=== PATIENT | male | born 1945 | race Caucasian/White ===

== ENCOUNTER → 2023-10-28 08:07 | Outpatient (REF) | payer BC, SELFPAY ==
[2023-10-28 10:08] LABS: HDL Cholesterol 71 mg/dl; LDL Cholesterol, Calculated 44 mg/dl; Total Cholesterol 127 mg/dl (50-199); Triglyceride 62 mg/dl (10-149); Very Low Density Lipoprotein 12 mg/dl (0-30)
== END ==
LOC: REG 08:07
PROVIDERS: ATTENDING PHYSICIAN Internal Medicine; FAMILY PHYSICIAN Family Medicine
DX: I25.10 Atherosclerotic heart disease of native coronary artery without angina pectoris (principal)
CPT/HCPCS: 36415; 80061

== ENCOUNTER → 2023-11-04 10:14 | Outpatient (REF) | payer BC, SELFPAY | LOC: DHCBC MAIN 10:14 | PROVIDERS: ATTENDING PHYSICIAN Internal Medicine; FAMILY PHYSICIAN Family Medicine | DX: I25.10 Atherosclerotic heart disease of native coronary artery without angina pectoris (principal); Z98.890 Other specified postprocedural states | CPT/HCPCS: 93306 ==

== ENCOUNTER → 2024-02-13 06:29 | Outpatient (REF) | payer BC, SELFPAY ==
[2024-02-13 08:11] LABS: ALT (SGPT) 20 U/L (0-50); AST (SGOT) 22 U/L (17-59); Albumin 3.5 g/dl (3.5-5.0); Alkaline Phosphatase 76 U/L (38-126); Blood Urea Nitrogen 36 mg/dl (9-20); Calcium 9.3 mg/dl (8.4-10.2); Carbon Dioxide 25 mmol/L (22-30); Chloride 107 mmol/L (98-107); Glucose 95 mg/dl (70-99); HDL Cholesterol 63 mg/dl; LDL Cholesterol, Calculated 63 mg/dl; Potassium 4.4 mmol/L (3.5-5.1); Sodium 138 mmol/L (135-145); Total Bilirubin 0.6 mg/dl (0.2-1.3); Total Cholesterol 135 mg/dl (50-199); Total Protein 6.3 g/dl (6.3-8.2); Triglyceride 45 mg/dl (10-149); Very Low Density Lipoprotein 9 mg/dl (0-30); eGFR 55.88
[2024-02-13 08:27] LABS: Free T3 2.43 pg/ml (2.77-5.27); Free T4 1.63 ng/dl (0.78-2.19)
[2024-02-13 08:29] LABS: Microalbumin, Random Urine 1.3 mg/dl (0.6-1.7); Microalbumin/creatinine Ratio 6.3 mg/g
[2024-02-13 08:40] LABS: TSH 0.35 uIU/ml (0.47-4.68)
[2024-02-13 09:25] LABS: Vitamin D, 25-OH*** 28.6 ng/mL (30-80)
[2024-02-13 09:38] LABS: Glycohemoglobin (HgbA1c) 5.6 % (4.0-5.6)
[2024-02-14 19:45] LABS: Total T3 (Sendout) 62 ng/dL (80-200)
== END ==
LOC: REG 06:29
PROVIDERS: ATTENDING PHYSICIAN Physician Assistant Medical; FAMILY PHYSICIAN Internal Medicine Endocrinology, Diabetes & Metabolism; REFERRING PHYSICIAN Family Medicine
DX: Z95.0 Presence of cardiac pacemaker (principal); R53.83 Other fatigue; R80.9 Proteinuria, unspecified; E03.9 Hypothyroidism, unspecified; E55.9 Vitamin D deficiency, unspecified; R73.03 Prediabetes; E78.5 Hyperlipidemia, unspecified
CPT/HCPCS: 36415; 80053; 80061; 82043; 82306; 82570; 83036; 84439; 84443; 84480; 84481

== ENCOUNTER → 2024-02-14 06:23 | Outpatient (REF) | payer BC, SELFPAY ==
[2024-02-14 08:18] LABS: Iron 26 ug/dl (49-181)
[2024-02-14 08:27] LABS: % Basophils 0.5 % (0-2); % Eosinophils 7.2 % (0-6); % Immature Granulocytes 0.3 % (0-0.5); % Lymphocytes 8.7 % (20.5-51.1); % Monocytes 9.9 % (1.7-9.3); % Neutrophils 73.4 % (42.2-75.2); Absolute Eosinophils 0.4 10^3/uL (0-0.7); Absolute Lymphocytes 0.5 10^3/uL (1.2-3.4); Absolute Monocytes 0.6 10^3/uL (0.1-0.6); Absolute Neutrophils 4.4 10^3/uL (1.4-6.5); Hematocrit 31.2 % (39.0-52.0); Hemoglobin 10.4 g/dL (13.0-18.0); Mean Corp Hgb Conc. 33.3 g/dL (33.0-37.0); Mean Corpuscular Hgb 31.3 pg (27.0-31.0); Mean Platelet Volume 10.1 fL (7.4-10.4); Nucleated Red Blood Cells % 0 % (-); Percent Saturation 10 % (20-50); Platelet Count 246 10^3/uL (130-400); Red Blood Cell Count 3.32 10^6/uL (4.70-6.10); Total Iron Binding Capacity 249 ug/dl (261-462)
== END ==
LOC: REG 06:23
PROVIDERS: ATTENDING PHYSICIAN Specialist; FAMILY PHYSICIAN Family Medicine
DX: D50.9 Iron deficiency anemia, unspecified (principal)
CPT/HCPCS: 36415; 82728; 83540; 83550; 85025

== ENCOUNTER 2024-02-15 22:57 | Inpatient (IN) | payer BC, MEDICARE, SELFPAY ==
[2024-02-15] VITALS (9 sets, daily range): BP systolic 144–175; BP diastolic 60–83
[2024-02-15 15:49] LABS: COVID-19 Antigen Negative (Negative)
[2024-02-15 16:11] LABS: NT-proBNP 4070 pg/ml; Troponin I 0.024 ng/ml
--- NOTE | 2024-02-15 18:34 | ED.GENMED ---
History of Present Illness
General
Chief Complaint: Breathing Problem
Time Seen by Provider: 02/15/24 18:13
History of Present Illness
History of Present Illness:
78-year-old male history of asthma, atrial fibrillation on Eliquis, hypertension, hyperlipidemia presenting with shortness of breath with exertion for the past 5 days. Patient denies chest pain, cough, LE edema, fever, or chills. Pt states he was
seen at urgent care 3 days ago when he had a negative CXR. Pt states he had Mohs surgery 2 weeks ago but did not stop his eliquis for it.
Past History
Past History
ED Past Medical History: Arrthythmia (atrial fibrillation), Asthma, CAD, Cancer (basal cell carcinoma with Mohs surgery), GERD, HTN, Hypercholesterolemia, Psychiatric (generalized anxiety disorder), Other (erectile dysfunction, recurrent sinus
infections) and Other (visually impaired, Blue's esophagus)
ED Past Surgical History: Cardiac (cardiac stent placement 2002, ablation for atrial fibrillation 2009, 07/2022 at [place]: Double bypass, pacemaker, tricuspid valve replacement) and Other (sinus surgery, interlaminar epidural steroid injection 2018)
Social History
Tobacco: Non-smoker (discontinued smoking greater than 10 years prior to 2020)
Alcohol: Occasional
Drug: None
Personal:
Living: with family
Employment: Employed
Family History
Family History: CAD
Phy Exam
Physical Exam
Physical Exam:
General: Alert, no acute distress
Head: NCAT
Eyes: clear conjunctiva
Neck: supple
Cardiac: regular rate and rhythm, no murmur
Lungs: clear to auscultation bilaterally. coarse breath sounds right mid lung. No wheezes, rales, or rhonchi. Speaking full unlabored sentences. No respiratory distress.
Abdomen: soft, nondistended nontender. No rebound or guarding.
MSK: trace pitting edema bilateral lower extremities. No deformity
Skin: warm, dry
Neuro: Alert and oriented x3. no focal deficits
Scores
Heart Failure Risk
Heart Failure Risk Score: Not Applicable
Course
Orders/Labs/Results
Orders:
Orders
02/15/24 14:58
Electrocardiogram (*1) Urgent
Reason for Study: Fatigue / Weakness
EKG- Treatment ONCE
02/15/24 15:15
BNP [NT-proBNP] Urgent
COVID-19 Antigen Urgent
Source: Nasal Swab
Troponin I Urgent
Influenza A+B Rapid Molecular Urgent
ELISEO Source: Nasal Swab
Specimen Description:
02/15/24 18:33
CXR2 [CR Chest - 2 Views ] Urgent
Comment:
Reason For Exam: sob
02/15/24 18:52
CMP [Comprehensive Metabolic Panel] Urgent
Complete Blood Count/With Diff Urgent
Lactic Acid Urgent
02/15/24 21:45
Bumetanide [Bumex] 2 mg IV NOW STA
02/15/24 23:00
Flush (0.9% Sodium Chloride) [Flush (Nss)] See Dose Instructions IV PER PROTOCOL
Abnormal Lab Results
02/15/24
18:52
RBC 3.18 L 10^6/uL
(4.70-6.10)
Hgb 9.9 L g/dL
(13.0-18.0)
Hct 28.8 L %
(39.0-52.0)
MCH 31.1 H pg
(27.0-31.0)
RDW 14.8 H %
(11.5-14.5)
Absolute Lymphs (auto) 0.6 L 10^3/uL
(1.2-3.4)
Absolute Monos (auto) 0.8 H 10^3/uL
(0.1-0.6)
Lymphocytes % 9.0 L %
(20.5-51.1)
Monocytes % 12.6 H %
(1.7-9.3)
BUN 34 H mg/dl
(9-20)
Glucose 113 H mg/dl
(70-99)
Total Protein 6.2 L g/dl
(6.3-8.2)
Albumin 3.4 L g/dl
(3.5-5.0)
02/15/24 18:52
02/15/24 18:52
Vital Signs
Initial and Last Documented VS:
Initial Vital Signs
Temp Pulse Resp BP Pulse Ox
98.9 F 74 18 144/60 90
02/15/24 14:53 02/15/24 14:53 02/15/24 14:53 02/15/24 14:53 02/15/24 14:53
Last Documented Vital Signs
Temp Pulse Resp BP Pulse Ox
100.5 F H 61 16 170/68 98
02/15/24 16:40 02/16/24 07:41 02/16/24 07:41 02/16/24 04:00 02/16/24 07:41
MDM/Problems Addressed
MDM/Problems Addressed:
Patient presents to the Emergency Department with shortness of breath
Number and Complexity of Problems Addressed at the Encounter
� Chronic conditions affecting care:
� Acute Exacerbation and/or Progression of Chronic Illness:
� Differential Diagnosis includes: CHF, viral syndrome, pneumonia, PE.
Amount and/or Complexity of Data to be Reviewed and Analyzed
� I performed an independent evaluation of and my interpretation is:
EKG: EKG shows NSR at 73bpm with WA 166 QTc 456, no STEMI
CT:
Xrays: CXR shows increased pulmonary edema compared to 3 days ago as read by me.
Laboratory Studies: probnp 4070. troponin within normal limits. covid/flu negative. hemoglobin 9.9 (baseline), wBC 6.1 with no left shift.
Other:
� Review of other/old records reveals:
� Clinical information was obtained by an independent historian:
� Prescriptions/Medications Considered but not given:
� Further testing considered but not performed: Low suspicion for PE given patient has been complaint with eliquis, has not missed any doses recently.
Risk of Complications and/or Morbidity or Mortality of Patient Management
� Social Determinants of health affecting care:
� Discussion with other providers (PCP, Hospitalists, Consultants, etc):
� Escalation of care including admission/observation vs risk of discharge considered: 78yoM hx afib on eliquis, HTN, HLD presenting with sob for the past 5 days. Patient becomes hypoxic to 87% on RA with ambulation, placed on 2L NC with improvement
to 96%. CXR shows increased pulmonary edema compared to CXR 3 days ago. Probnp 4070. Troponin negative. Concern for CHF. Ordered bumex 2mg IV. Discussed with hospitalist for admission.
*Critical Care Note
Total Time (30-74mins, 75-104mins- exclusive of procedures): Not Applicable
ED Attending Note
-
Portions of this chart may have been created with voice recognition software.� Occasional wrong word or��sound alike� substitutions may have occurred due to the inherent limitations of voice recognition software.
Discharge Plan
Departure
Patient Disposition: Admit
Date of Disposition: 02/15/24
Time of Disposition: 21:45
Presentation/result/management discussed w/ accepting MD/DO: Hospitalist
Discharge Problem:
CHF (congestive heart failure), Acute hypoxic respiratory failure
Interventions
Interventions:
*Risk Screen - Suicide Last Done: 02/15/24 14:53
*General Assessment Last Done: 02/15/24 14:53
*Neglect/Abuse Screening Last Done: 02/15/24 14:53
ED- Fall Risk Assessment Last Done: 02/15/24 18:28
*ED COVID-19 Vaccine History Last Done: 02/15/24 18:28
ED- Cardiac Assessment Last Done: 02/15/24 18:28
ED- Pulmonary Assessment Last Done: 02/15/24 18:28
[2024-02-15 19:04] LABS: % Basophils 0.5 % (0-2); % Eosinophils 5.1 % (0-6); % Immature Granulocytes 0.5 % (0-0.5); % Monocytes 12.6 % (1.7-9.3); % Neutrophils 72.3 % (42.2-75.2); Absolute Eosinophils 0.3 10^3/uL (0-0.7); Absolute Lymphocytes 0.6 10^3/uL (1.2-3.4); Absolute Monocytes 0.8 10^3/uL (0.1-0.6); Absolute Neutrophils 4.4 10^3/uL (1.4-6.5); Hematocrit 28.8 % (39.0-52.0); Hemoglobin 9.9 g/dL (13.0-18.0); Mean Corp Hgb Conc. 34.4 g/dL (33.0-37.0); Mean Corpuscular Hgb 31.1 pg (27.0-31.0); Mean Corpuscular Volume 90.6 fL (80.0-94.0); Mean Platelet Volume 9.5 fL (7.4-10.4); Nucleated Red Blood Cells % 0 % (-); Platelet Count 232 10^3/uL (130-400); Red Blood Cell Count 3.18 10^6/uL (4.70-6.10); Red Cell Dist. Width 14.8 % (11.5-14.5); White Blood Cell Count 6.1 10^3/uL (4.8-10.8)
[2024-02-15 19:26] LABS: ALT (SGPT) 17 U/L (0-50); AST (SGOT) 19 U/L (17-59); Albumin 3.4 g/dl (3.5-5.0); Alkaline Phosphatase 74 U/L (38-126); Blood Urea Nitrogen 34 mg/dl (9-20); Calcium 8.7 mg/dl (8.4-10.2); Carbon Dioxide 23 mmol/L (22-30); Chloride 107 mmol/L (98-107); Glucose 113 mg/dl (70-99); Lactic Acid 0.7 mmol/L (0.7-2.0); Potassium 3.9 mmol/L (3.5-5.1); Sodium 136 mmol/L (135-145); Total Bilirubin 0.7 mg/dl (0.2-1.3); Total Protein 6.2 g/dl (6.3-8.2); eGFR > 60.00
--- NOTE | 2024-02-15 21:53 | HPS.HSE ---
Addendum entered and electronically signed by Korey Gutierrez DO 02/15/24 23:16:
Patient seen and examined independently. Agree with findings and plan as set forth by GLADYS Sewell.
Patient is a 78y M with PMH significant for hypertension. CHF, A-Fib and ASCVD who presents to ED complaining of SOB x 5 days. Patient complains of dyspnea that is more evident with exertion and has been progressive over the past 5 days. He
denies any subjective fevers / chills, cough, chest pain or palpitations. Patient states that his weight has not changed at home. He has appreciated no abdominal distention or LE edema. He denies nay other current complaints or concerns.
Ass:
Acute on Chronic HFpEF
Acute Hypoxemic Respiratory Insufficiency secondary to the above
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
Paroxysmal A-Fib
ASCVD
Heart Block s/p PPM
Benign Hypertension
Dyslipidemia
CKD III
GERD / Blue's
BPH
Anemia of Chronic Disease
Fever
Plan:
Admit for further evaluation and treatment.
Symptoms, CXR, etc seem c/w volume overload.
Change Bumex to IV and follow I/Os, daily weights, oxygenation, etc.
Cardiology evaluation for additional recommendations.
Continue usual outpatient medications otherwise.
Monitor for changes in temperature curve. Check cultures if fever increases or new focal symptoms develop.
Original Note:
Family Physician
-
Family Physician: Jose J Delcid
Chief Complaint
-
sob
History of Present Illness
78-year-old male history of asthma, atrial fibrillation on Eliquis, hypertension, hyperlipidemia, asthma, CAD, GERD, HTN, HLD, anxiety, Blue's esophagus presenting with shortness of breath with exertion for the past 5 days. Patient denies chest
pain, cough, LE edema, fever, or chills. denied runny nose, congestion. denied ELENA, dizzy or syncopal episode. denied abdominal pain,n,v,d. denied dysuria or hematuria.
note elevated BNP. patient hypoxic requiring 2l. received Bumex in ER. admitting for further management.
Medical History
Past Medical History
Past Medical History: Reports Other
Additional Past Medical History:
Coronary Artery Disease
Chronic HFpEF
Paroxysmal Atrial Fibrillation
Complete Heart Block
Essential Hypertension
Hyperlipidemia
CKD Stage III
Asthma/COPD
Severe Pulmonary Hypertension
Blue's Esophagus
BPH
Past Surgical History: Reports Other
Additional Past Surgical History:
Coronary Artery Bypass Graft
Pacemaker
Tricuspid Valve Repair
Mitral Valve Repair
Social History
Tobacco: Non-smoker
Alcohol: None
Family History
Family History: Not pertinent
Allergies / Home Medications
Allergies reflects when Allergies were last updated in [employer].
Home Medications with original date entered in [employer]
Allergy/Medication List:
Allergies
Allergy/AdvReac Type Severity Reaction Status Date / Time
celery Allergy throat raw Verified 02/15/24 14:53
and itchy
house dust Allergy ASTHMA Verified 02/15/24 14:53
mold Allergy asthma Verified 02/15/24 14:53
onion Allergy throat raw Verified 02/15/24 14:53
and itch
mildew Allergy asthma Uncoded 02/15/24 14:53
Home Medications
apixaban 5 mg tablet (Eliquis) 5 mg PO BID Blood clot prevention/tx 06/30/21
lorazepam 1 mg tablet 0.5 mg PO TIDPRN PRN anxiety 06/30/21
zolpidem 10 mg tablet 5 mg PO BID@0200,2100 Sleep 06/30/21
finasteride 5 mg tablet 5 mg PO DAILY Urinary Issue 07/01/22
mometasone 50 mcg/actuation nasal spray 1 spray intranasal BID Lung/Breathing Issues 07/01/22
fluticasone fur. 100 mcg-umeclid 62.5 mcg-vilant 25 mcg inhalat.powder (Trelegy Ellipta) 1 inh inhalation R DAILY Lung/Breathing Issues 07/06/22
potassium chloride 20 mEq tablet,extended release 20 meq PO BID #180 tabs 07/06/22
albuterol sulfate 90 mcg/actuation aerosol inhaler 2 puff inhalation R Q6HPRN PRN sob/wheezing 02/18/23
atorvastatin 80 mg tablet 80 mg PO QPM High Cholesterol 02/18/23
bumetanide 2 mg tablet 2 mg PO NOON Fluid Retention/Swelling 02/18/23
carvedilol 25 mg tablet 25 mg PO BID Blood Pressure 02/18/23
doxazosin 8 mg tablet 8 mg PO BID Blood Pressure 02/18/23
hydralazine 100 mg tablet 100 mg PO TID Blood Pressure 02/18/23
lutein 20 mg capsule 20 mg PO DAILY Supplement 02/19/23
lidocaine 4 % topical patch 2 patch topical HS Pain 03/09/23
sennosides 8.6 mg tablet (Senna Laxative) 17.2 mg PO DAILY Constipation 03/09/23
B-Hagrby-E-Cysteine 600 mg PO DAILY Supplement 05/27/23
acetaminophen 500 mg tablet 1,000 mg PO BID@1800,2200 Pain 05/27/23
Review of Systems
-
Constitutional: Reports No Symptoms
EENT: Reports No Symptoms
Respiratory: Reports No Symptoms and Trouble Breathing
Cardiac: Reports No Symptoms
Abdomen/GI: Reports No Symptoms
: Reports No Symptoms
Musculoskeletal: Reports No Symptoms
Skin: Reports No Symptoms
Neurological: Reports No Symptoms
Endocrine: Reports No Symptoms
Hematologic/Lymphatic: Reports No Symptoms
Psych: Reports No Symptoms
Physical Exam
Vital Signs
Vital Signs
Temp Pulse Resp BP Pulse Ox
100.5 F H 60 17 153/69 96
02/15/24 16:40 02/15/24 20:15 02/15/24 20:15 02/15/24 20:00 02/15/24 20:15
Physical Exam
General: Well Developed, Well Nourished and No Apparent Distress
HEENT: NormoCephalic, Moist mucous membranes and Atraumatic
Respiratory: Rales
Cardiac: S1/S2 and Regular Rhythm; No Murmur or Rub
GI: Soft, Non Tender, Non Distended and Normal Bowel Sounds; No Organomegaly
Rectal: Deferred by Provider
Musculoskeletal: No Clubbing, No Cyanosis and No Edema
Skin: No Rash
Neuro: AO x 3 and Nonfocal/grossly intact
Psych: Calm
Laboratory Results
-
02/15/24 18:52
02/15/24 18:52
Laboratory Results
Lactic Acid 0.7 mmol/L (0.7-2.0) 02/15/24 18:52
Total Bilirubin 0.7 mg/dl (0.2-1.3) 02/15/24 18:52
AST 19 U/L (17-59) 02/15/24 18:52
ALT 17 U/L (0-50) 02/15/24 18:52
Alkaline Phosphatase 74 U/L (38-126) 02/15/24 18:52
Troponin I 0.024 ng/ml 02/15/24 15:15
Data Reviewed
-
Lab Data: Labs Reviewed by me
Impression/Plan
-
#worsening sob/acute hypoxic respiratory failure likely CHF exacerbation
-BNP 4070
-chest x ray with pulmonary edema
-iv Bumex continued
-strict I &O
-daily weight
-fluid restriction
-recent ECHO with . LV ejection fraction is 60-65% by Solares's method of discs. Diastolic function indeterminate.
-continue supplemental oxygen to keep sat>92
-wean as tolerated
-cardiology consulted
#anemia of chronic disease
-hgb stable at 9.9
-no active bleeding
-ctm
#fever unclear cause
-100.5
-flu, covid negative
-obtain culture if continues to spike fever
# Paroxysmal Atrial Fibrillation status post history of ablation
-Continue Amiodarone for rate/rhythm control
-Continue Eliquis for anticoagulation
-EKg with NSR with atrial paced beats
#Essential Hypertension
-Continue Doxazosin, Coreg and Hydralazine with hold parameter
#Hyperlipidemia
-Continue atorvastatin
#CKD Stage IIIB
-Creatinine stable and at baseline
#GERD/Blue's Esophagus
-Continue Protonix
#BPH
-Continue doxazosin and finasteride
#Complete Heart Block s/p Pacemaker
#Coronary Artery Disease s/p CABG
#Tricuspid valve regurgitation
#History of heart valve surgery
#History of pacemaker
#hxt of Asthma
-nebs prn for sob/wheezing
#Basal cell carcinoma with Mohs surgery
#Anxiety
-lorazepam continued
#Bilateral blindness
#Chronic low back pain
-lidocaine patch
#DVT Prophylaxis: Eliquis
#Code Status: Full Code
[2024-02-15] MEDS: BUMEX 2 MG IV (23:04)
[2024-02-16] VITALS (22 sets, daily range): BP systolic 114–174; BP diastolic 52–75; PULSE 62; O2SAT 95
[2024-02-16] MEDS: AMBIEN 5 MG PO ×2 (00:44→21:44)
[2024-02-16 02:46] LABS: Troponin I 0.017 ng/ml
[2024-02-16 06:22] LABS: Hematocrit 27.8 % (39.0-52.0); Hemoglobin 9.6 g/dL (13.0-18.0); Mean Corp Hgb Conc. 34.5 g/dL (33.0-37.0); Mean Corpuscular Hgb 31.4 pg (27.0-31.0); Mean Corpuscular Volume 90.8 fL (80.0-94.0); Mean Platelet Volume 9.9 fL (7.4-10.4); Platelet Count 217 10^3/uL (130-400); Red Blood Cell Count 3.06 10^6/uL (4.70-6.10); Red Cell Dist. Width 14.6 % (11.5-14.5); White Blood Cell Count 6.3 10^3/uL (4.8-10.8)
[2024-02-16 06:35] LABS: ALT (SGPT) 16 U/L (0-50); AST (SGOT) 18 U/L (17-59); Albumin 3.3 g/dl (3.5-5.0); Alkaline Phosphatase 72 U/L (38-126); Blood Urea Nitrogen 30 mg/dl (9-20); Calcium 8.8 mg/dl (8.4-10.2); Carbon Dioxide 25 mmol/L (22-30); Chloride 105 mmol/L (98-107); Direct Bilirubin 0.2 mg/dl (0.0-0.4); Glucose 97 mg/dl (70-99); HDL Cholesterol 49 mg/dl; LDL Cholesterol, Calculated 67 mg/dl; Magnesium 1.9 mg/dl (1.6-2.3); Potassium 3.4 mmol/L (3.5-5.1); Sodium 137 mmol/L (135-145); Total Bilirubin 0.8 mg/dl (0.2-1.3); Total Cholesterol 128 mg/dl (50-199); Triglyceride 64 mg/dl (10-149); Very Low Density Lipoprotein 12 mg/dl (0-30); eGFR > 60.00
[2024-02-16 07:34] LABS: Free T4 1.64 ng/dl (0.78-2.19)
[2024-02-16] MEDS: SYMBICORT 80/4.5 MCG INHALER 2 PUFF INH ×2 (07:34→20:33)
[2024-02-16] MEDS: SPIRIVA RESPIMAT 2.5 MCG 2 PUFF INH (07:34)
[2024-02-16] MEDS: ProAIR HFA INHALER 2 PUFF INH ×2 (07:40→20:32)
--- NOTE | 2024-02-16 08:02 | CON.CAR ---
Addendum entered and electronically signed by Devante Guerrero MD 02/16/24 09:55:
Patient seen and examined in collaboration with [employer]; agree with below.
-78-year-old male with coronary artery disease who underwent CABG, mitral valve repair, tricuspid valve repair, TERE ligation, and permanent pacemaker implantation (07/2022 at [facility]), PAF (on Eliquis), HFpEF, and CKD presenting with dyspnea over the
past few days; hypoxic on presentation.
-Patient is mildly febrile with a temperature of 100.5; will check blood cultures.
-Repeat echocardiogram today.
-Bumex 2 mg IV twice daily for now.
-engine monitor; will follow.
Original Note:
Consultation
Consultation Request
Date/Time Consultation Requested: 02/16/24 0013
Date/Time Consultation Performed: 02/16/24 0800
Requesting Provider: Dr. Gutierrez
Performing Provider: Cheyenne GRAHAM for Dr. Guerrero
Reason for Consultation: CHF
Medical History
-
Chief Complaint: SOB
History of Present Illness:
78 y/o male with CAD s/p LAD stent 2002, now s/p CABG, MV repair, TV repair, TERE ligation 2022, post-op CHB s/p PPM, PAF s/p ablation and atrial flutter on Eliquis, HFpEF, HTN, dyslipidemia, CKD3A, legally blind, asthma, and GERD who is here for
worsened MILLER over the past 5 days. He has had occasional chills, but no fever at home. He has had fatigue as well. He denies any cough, weight gain, or chest pain. He was hypoxic to 87% and is now on 2L NC. BNP 4070, temp 100.5. EKG stable. CXR
suggestive excess volume. Covid and flu negative. He is admitted for suspected CHF exacerbation and is received IV bumex. He is in no distress at the time of my assessment. Dr. Alvarez is his welding tester. Follows with [facility].
Past Medical History
Past Medical History: Arrhythmias, CAD, CHF, GERD, HTN, Hypercholesterolemia, Valvular Disease and Other (as above)
Social History
Personal:
Living: With Family
Family History
Family History: Reviewed & Not Pertinent
Allergies / Home Medications
Allergy/AdvReac Type Severity Reaction Status Date / Time
celery Allergy throat raw Verified 02/15/24 14:53
and itchy
house dust Allergy ASTHMA Verified 02/15/24 14:53
mold Allergy asthma Verified 02/15/24 14:53
onion Allergy throat raw Verified 02/15/24 14:53
and itch
mildew Allergy asthma Uncoded 02/15/24 14:53
�Medication �Instructions �Recorded �Confirmed �Type
apixaban 5 mg tablet (Eliquis) 5 mg PO BID Blood clot 06/30/21 02/15/24 History
prevention/tx
lorazepam 1 mg tablet 0.5 mg PO TIDPRN PRN anxiety 06/30/21 02/15/24 History
zolpidem 10 mg tablet 5 mg PO BID@0200,2100 Sleep 06/30/21 02/15/24 History
finasteride 5 mg tablet 5 mg PO DAILY Urinary Issue 07/01/22 02/15/24 History
mometasone 50 mcg/actuation nasal 1 spray intranasal BID 07/01/22 02/15/24 History
spray Lung/Breathing Issues
fluticasone fur. 100 mcg-umeclid 1 inh inhalation R DAILY 07/06/22 02/15/24 History
62.5 mcg-vilant 25 mcg Lung/Breathing Issues
inhalat.powder (Trelegy Ellipta)
potassium chloride 20 mEq 20 meq PO BID #180 tabs 07/06/22 02/15/24 Rx
tablet,extended release
albuterol sulfate 90 mcg/actuation 2 puff inhalation BID 02/18/23 02/16/24 History
aerosol inhaler
atorvastatin 80 mg tablet 80 mg PO QPM High Cholesterol 02/18/23 02/15/24 History
bumetanide 2 mg tablet 2 mg PO NOON Fluid 02/18/23 02/15/24 History
Retention/Swelling
carvedilol 25 mg tablet 25 mg PO BID Blood Pressure 02/18/23 02/15/24 History
doxazosin 8 mg tablet 8 mg PO BID Blood Pressure 02/18/23 02/15/24 History
hydralazine 100 mg tablet 100 mg PO TID Blood Pressure 02/18/23 02/15/24 History
lutein 20 mg capsule 20 mg PO DAILY Supplement 02/19/23 02/15/24 History
lidocaine 4 % topical patch 2 patch topical HS Pain 03/09/23 02/15/24 History
sennosides 8.6 mg tablet (Senna 17.2 mg PO DAILY Constipation 03/09/23 02/15/24 History
Laxative)
H-Zbloll-C-Cysteine 600 mg PO DAILY Supplement 05/27/23 02/15/24 History
acetaminophen 500 mg tablet 1,000 mg PO BID@1800,2200 Pain 05/27/23 02/15/24 History
Review of Systems
-
History Source: Patient
All other systems: Negative unless noted
Constitutional: Fatigue
Respiratory: Trouble Breathing
Physical Exam
Vital Signs
Temp Pulse Resp BP Pulse Ox
100.5 F H 61 16 170/68 98
02/15/24 16:40 02/16/24 07:41 02/16/24 07:41 02/16/24 04:00 02/16/24 07:41
Lab Results
02/16/24 06:06
02/16/24 06:06
Troponin I 0.020 ng/ml 02/16/24 06:06
Aja-P-Cjigjklripk Pept 4070 pg/ml 02/15/24 15:15
Physical Exam
General: Well Developed, Well Nourished and No Apparent Distress
HEENT: Normocephalic and Anicteric
Respiratory: Non Labored Respirations and Other (diminished to bases, on O2 by NC)
Cardiac: Regular Rhythm
Musculoskeletal: Edema (mild BLE edema)
Neuro: AO x 3
Psych: Calm
Impression / Plan
-
Hpofw-kh-gjdrmji HFpEF:
-most recent echo as below; will update
-IV bumex- adjust to BID and monitor response- requires intensive monitoring
-hypokalemia is noted and I have ordered replacement
PAF, hx Typical aflutter:
-stable in SR
-continue coreg and follow telemetry
-continue Eliquis for OAC
CAD with hx stenting and CABG:
-stable without CP
-continue ASA, statin, BB
Hx TV and MV repair:
-stable by recent echo
CHF s/p pacemaker:
-follow tele
-follows with [facility]
HTN:
-on multidrug regimen- continue
-monitor with diuresis
Low-grade fever:
-will check blood cultures
Data Reviewed
-
EKG: Tracing Personally Visualized and interpreted (NSR with a paced beats, LVH - similar to previous OP EKG)
Radiology: Report Reviewed by me (Small bilateral pleural effusions. Both lungs appear hypoinflated compared to most recent radiograph. Cardiomegaly. Suggestion of mild increased interstitial markings.)
Medical Tests (Nuc Med, Echo etc): Report Reviewed by me (Echo 11/04/23: EF 60-65%. Mild concentric LVH. Pacer wire seen in right ventricle. Severe biatrial enlargement. S/p Mitral valve repair (mean 4 mmHg and mild MR). Mild AR. S/p Tricuspid valve
repair (mean 3 mmHg and moderate TR). Estimated PASP 59 mmHg and estimated RA 15 mmHg.)
Labs: Labs Reviewed by me
--- NOTE | 2024-02-16 08:54 | W.PN.HOSP.TC ---
Today's Communication/Plan
-
see bold
Assessment / Plan
Assessment / Plan
HPI: 78-year-old male history of asthma, atrial fibrillation on Eliquis, hypertension, hyperlipidemia, asthma, CAD, GERD, HTN, HLD, anxiety, Blue's esophagus presenting with shortness of breath with exertion for the past 5 days.
#Acute hypoxic respiratory insufficiency
Acute on chronic heart failure with a preserved ejection fraction
Appreciate cardiology input, continue IV Bumex, update echo
Trend creatinine, trend daily weights, wean oxygen as tolerated
#Fever
No leukocytosis noted
Tmax yesterday was 100.5
Chest x-ray shows small bilateral pleural effusions, COVID/flu negative
Check blood cultures, urine analysis/culture
#Hypokalemia
Replete
#Paroxysmal atrial fibrillation/flutter
Currently normal sinus rhythm, continue Eliquis and Coreg
#Coronary artery disease status post stents and CABG
Continue aspirin, statin, beta-renetta
#Chronic back pain
#Degenerative disc disease
He is ordered Tylenol according to his home regimen
Add tramadol 50 mg 3 times daily as needed, lidocaine patches
#Anemia of chronic disease
� Trend hemoglobin
#Essential Hypertension
-Continue Doxazosin, Coreg and Hydralazine with hold parameter
#Hyperlipidemia
-Continue atorvastatin
#CKD Stage IIIB
-Creatinine stable and at baseline
#GERD/Blue's Esophagus
-Continue Protonix
#BPH
-Continue doxazosin and finasteride
DVT prophylaxis�Eliquis
Full code
Updated at bedside 02/15
Total time spent to see the patient on the floor, examine the patient, review data and lab results, discuss treatment plan with patient, nursing staff around 51 minutes.
Physical Exam
General: Appears to not feel well, no acute distress
HEENT: Normocephalic, Atraumatic, EOMI, MMM
Respiratory: Diminished breath sounds at the bases
Cardiac: Normal S1/S2, Regular Rate and Rhythm
GI: Soft, Nontender, Nondistended, Normal Bowel Sounds
Extremities: No Clubbing, Cyanosis, or Edema
Neuro: Nonfocal/Grossly Intact
Psych: Calm, Cooperative
Anticipated Discharge: 24 - 48 hours
Subjective/Interval History
-
Date of Service: February 16, 2024
Patient reports his shortness of breath has improved. Denies chest pain, denies nausea, denies vomiting. He is upset that he did not get his usual pain medications on his regular schedule.
Objective Data
-
Labs:
Laboratory Results
02/16/24
06:06
WBC 6.3
Hgb 9.6 L
Hct 27.8 L
Plt Count 217
Sodium 137
Potassium 3.4 L
Chloride 105
Carbon Dioxide 25
BUN 30 H
Creatinine 1.2
Glucose 97
Calcium 8.8
Total Bilirubin 0.8
AST 18
ALT 16
Alkaline Phosphatase 72
Vital Signs:
Vital Signs
Temp Pulse Resp BP Pulse Ox
100.5 F H 61 16 170/68 98
02/15/24 16:40 02/16/24 07:41 02/16/24 07:41 02/16/24 04:00 02/16/24 07:41
I&O
02/15/24 02/16/24 02/17/24
06:59 06:59 06:59
Output Total 1655 / 1655
Balance -1655 / -1655
[2024-02-16] MEDS: APRESOLINE 100 MG PO ×3 (10:48→21:43)
[2024-02-16] MEDS: BUMEX 2 MG IV ×2 (10:48→16:28)
[2024-02-16] MEDS: SENOKOT 17.2 MG PO (10:49)
[2024-02-16] MEDS: PROSCAR 5 MG PO (10:49)
[2024-02-16] MEDS: CARDURA 8 MG PO ×2 (10:50→21:43)
[2024-02-16] MEDS: COREG 25 MG PO ×2 (10:50→21:43)
[2024-02-16] MEDS: ELIQUIS 5 MG PO ×2 (10:50→21:44)
[2024-02-16] MEDS: ULTRAM 50 MG PO ×2 (11:16→18:39)
[2024-02-16] MEDS: KCL 20 MEQ PO ×4 (11:16→21:44)
[2024-02-16 12:23] LABS: Troponin I 0.019 ng/ml
[2024-02-16] MEDS: LIPITOR 80 MG PO (16:28)
[2024-02-16] MEDS: TYLENOL 1000 MG PO ×2 (16:28→21:44)
[2024-02-16] MEDS: LIDOCAINE 4% PATCH 2 PATCH TOPICAL (21:44)
[2024-02-16] MEDS: COREG PO (21:56)
[2024-02-17] VITALS (7 sets, daily range): BP systolic 133–166; BP diastolic 63–75; PULSE 69; O2SAT 91; BMI 24.5
[2024-02-17] MEDS: TYLENOL PO (03:05)
[2024-02-17] MEDS: ATIVAN 0.5 MG PO (03:44)
[2024-02-17] MEDS: COREG PO (04:03)
[2024-02-17 07:07] LABS: Hematocrit 28.8 % (39.0-52.0); Mean Corp Hgb Conc. 34.7 g/dL (33.0-37.0); Mean Corpuscular Hgb 31.7 pg (27.0-31.0); Mean Corpuscular Volume 91.4 fL (80.0-94.0); Mean Platelet Volume 9.8 fL (7.4-10.4); Platelet Count 226 10^3/uL (130-400); Red Blood Cell Count 3.15 10^6/uL (4.70-6.10); Red Cell Dist. Width 14.5 % (11.5-14.5); White Blood Cell Count 6.7 10^3/uL (4.8-10.8)
[2024-02-17] MEDS: SPIRIVA RESPIMAT 2.5 MCG 2 PUFF INH (07:26)
[2024-02-17] MEDS: SYMBICORT 80/4.5 MCG INHALER 2 PUFF INH ×2 (07:27→21:10)
[2024-02-17 07:34] LABS: Blood Urea Nitrogen 32 mg/dl (9-20); Carbon Dioxide 26 mmol/L (22-30); Chloride 106 mmol/L (98-107); Estimated Creatinine Clearance 53 ml/min; Glucose 92 mg/dl (70-99); Phosphorus 3.7 mg/dl (2.5-4.5); Sodium 139 mmol/L (135-145); eGFR > 60.00
[2024-02-17] MEDS: SENOKOT 17.2 MG PO (07:49)
[2024-02-17] MEDS: KCL 20 MEQ PO ×2 (07:49→20:59)
[2024-02-17] MEDS: PROSCAR 5 MG PO (07:49)
[2024-02-17] MEDS: ELIQUIS 5 MG PO ×2 (07:49→20:59)
[2024-02-17] MEDS: APRESOLINE 100 MG PO ×3 (07:51→20:59)
[2024-02-17] MEDS: CARDURA 8 MG PO ×2 (07:51→21:00)
[2024-02-17] MEDS: COREG 25 MG PO ×2 (07:51→21:00)
[2024-02-17] MEDS: BUMEX 2 MG IV ×2 (07:52→16:21)
--- NOTE | 2024-02-17 08:41 | W.PN.HOSP.TC ---
Today's Communication/Plan
-
See bold
Assessment / Plan
Assessment / Plan
HPI: 78-year-old male history of asthma, atrial fibrillation on Eliquis, hypertension, hyperlipidemia, asthma, CAD, GERD, HTN, HLD, anxiety, Blue's esophagus presenting with shortness of breath with exertion for the past 5 days.
#Acute hypoxic respiratory insufficiency
Acute on chronic heart failure with a preserved ejection fraction
Appreciate cardiology input, continue Bumex 2 mg IV twice daily
Echo 02/15 stable with EF 55-60% and stable MV and TV repairs
Trend creatinine, trend daily weights
Hypoxia resolved, now on room air
PT - no needs
#Fever
No leukocytosis noted
Tmax yesterday was 100.5
Chest x-ray shows small bilateral pleural effusions, COVID/flu negative
Urine analysis/blood cultures negative to date, fever resolved
#Hypokalemia
Repleted and resolved
#Paroxysmal atrial fibrillation/flutter
Currently normal sinus rhythm, continue Eliquis and Coreg
#Coronary artery disease status post stents and CABG
Continue aspirin, statin, beta-renetta
#Chronic back pain
#Degenerative disc disease
He is ordered Tylenol according to his home regimen
Added tramadol 50 mg 3 times daily as needed, lidocaine patches
#Anemia of chronic disease
� Trend hemoglobin
#Essential Hypertension
-Continue Doxazosin, Coreg and Hydralazine with hold parameter
#Hyperlipidemia
-Continue atorvastatin
#CKD Stage IIIB
-Creatinine stable and at baseline
#GERD/Blue's Esophagus
-Continue Protonix
#BPH
-Continue doxazosin and finasteride
DVT prophylaxis�Eliquis
Full code
Updated at bedside 02/15
Total time spent to see the patient on the floor, examine the patient, review data and lab results, discuss treatment plan with patient, nursing staff around 41 minutes.
Physical Exam
General: Appears to not feel well, no acute distress
HEENT: Normocephalic, Atraumatic, EOMI, MMM
Respiratory: Diminished breath sounds at the bases
Cardiac: Normal S1/S2, Regular Rate and Rhythm
GI: Soft, Nontender, Nondistended, Normal Bowel Sounds
Extremities: No Clubbing, Cyanosis, or Edema
Neuro: Nonfocal/Grossly Intact
Psych: Calm, Cooperative
Anticipated Discharge: Within 24 hours
Subjective/Interval History
-
Date of Service: February 17, 2024
Patient reports breathing improved. His pain is better controlled now that he is back on his home regimen. No fever, no vomiting.
Objective Data
-
Labs:
Laboratory Results
02/17/24
06:36
WBC 6.7
Hgb 10.0 L
Hct 28.8 L
Plt Count 226
Sodium 139
Potassium 4.0
Chloride 106
Carbon Dioxide 26
BUN 32 H
Creatinine 1.2
Glucose 92
Calcium 9.0
Vital Signs:
Vital Signs
Temp Pulse Resp BP Pulse Ox
98.2 F 69 16 166/67 96
02/17/24 03:00 02/17/24 07:51 02/17/24 07:29 02/17/24 07:51 02/17/24 07:29
I&O
02/16/24 02/17/24 02/18/24
06:59 06:59 06:59
Intake Total 240 / 240
Output Total 2555 / 2555
Balance -2315 / -2315
[2024-02-17 10:15] LABS: Urine Albumin Negative (Neg - Trace); Urine Bilirubin Negative (Negative); Urine Character Clear (Clear); Urine Color Yellow; Urine Glucose Negative (Negative); Urine Ketone Negative (Negative); Urine Leukocyte Negative (Negative); Urine Nitrite Negative (Negative); Urine Occult Blood Negative (Negative); Urine Urobilinogen Negative (Neg - 1+); Urine pH 6.5 (5.0-9.0)
--- NOTE | 2024-02-17 11:38 | W.PN.CD ---
Today's Communication / Plan
-
continue IV bumex 2mg IV bid
Impression / Plan
-
Objwe-qt-kzifbgs HFpEF:
-echo 02/15 stable with EF 55-60% and stable MV and TV repairs
-continue IV bumex 2mg IV bid, with close monitoring of labs and tele
Low-grade fever:
-infectious eval per hospitalist
PAF, hx Typical aflutter:
-stable in SR
-continue coreg and follow telemetry: atrial paced
-continue Eliquis for OAC
CAD with hx stenting and CABG:
-stable without CP
-continue ASA, statin, BB
Hx TV and MV repair:
-stable by recent echo
HTN:
-on multidrug regimen- continue
-monitor with diuresis
Physical Exam
Vital Signs/Labs
Vital Signs
Temp Pulse Resp BP Pulse Ox
98.1 F 69 16 166/67 96
02/17/24 07:00 02/17/24 07:51 02/17/24 07:29 02/17/24 07:51 02/17/24 07:29
02/16/24 02/17/24 02/18/24
06:59 06:59 06:59
Actual Weight 80 kg 79.52 kg
02/17/24 06:36
02/17/24 06:36
Magnesium 2.0 mg/dl (1.6-2.3) 02/17/24 06:36
Triglycerides 64 mg/dl (10-149) 02/16/24 06:06
LDL Cholesterol, Calc 67 mg/dl 02/16/24 06:06
VLDL Cholesterol, Calc 12 mg/dl (0-30) 02/16/24 06:06
HDL Cholesterol 49 mg/dl 02/16/24 06:06
Free T4 1.64 ng/dl (0.78-2.19) 02/16/24 06:06
02/15/24
15:15
Bhc-B-Lvjsgukrtsk Pept 4070
LAB Results
02/15/24 02/16/24 02/16/24
15:15 02:10 06:06
Troponin I 0.024 0.017 0.020
02/16/24
11:28
Troponin I 0.019
Physical Exam
Constitutional: No acute distress and Comfortable
EENT: Moist mucous membranes
Cardiovascular: Rhythm & rate is regular, Pedal edema present, JVD present and Systolic murmur present
Respiratory: Respiratory effort normal and Lungs clear to auscul.
GI: Soft and Distention absent
Neuro/Psych: AO x 3
Data Reviewed
-
Date of Service: February 17, 2024
Echo: Report Reviewed by me
Labs: Labs Reviewed by me
--- NOTE | 2024-02-17 14:37 | CM ---
collision center manager reviewed patient's chart and met with patient and patient lives with his spouse in a 2 story home, 3 steps to enter, patient is independent with adl's and ambulation, no dme.
PCP: Dr. Delcid
Pharmacy; [facility]
Plan; Home with spouse when stable.
[2024-02-17] MEDS: ULTRAM PO (15:03)
[2024-02-17] MEDS: ULTRAM 50 MG PO ×2 (15:05→21:16)
[2024-02-17] MEDS: LIPITOR 80 MG PO (17:27)
[2024-02-17] MEDS: TYLENOL 1000 MG PO ×2 (17:27→20:59)
[2024-02-17] MEDS: LIDOCAINE 4% PATCH 2 PATCH TOPICAL (20:59)
[2024-02-17] MEDS: AMBIEN 5 MG PO (21:00)
[2024-02-18] MEDS: ATIVAN 0.5 MG PO (02:09)
[2024-02-18] MEDS: TYLENOL 500 MG PO (02:09)
[2024-02-18 03:10] VITALS: BP 129/52
[2024-02-18 06:00] VITALS: BMI 24.1
[2024-02-18 07:26] LABS: Blood Urea Nitrogen 32 mg/dl (9-20); Calcium 9.3 mg/dl (8.4-10.2); Carbon Dioxide 27 mmol/L (22-30); Chloride 105 mmol/L (98-107); Estimated Creatinine Clearance 53 ml/min; Glucose 95 mg/dl (70-99); Potassium 3.8 mmol/L (3.5-5.1); Sodium 138 mmol/L (135-145); eGFR > 60.00
[2024-02-18] MEDS: CARDURA 8 MG PO (07:36)
[2024-02-18] MEDS: SENOKOT 17.2 MG PO (07:36)
[2024-02-18] MEDS: ELIQUIS 5 MG PO (07:37)
[2024-02-18] MEDS: PROSCAR 5 MG PO (07:37)
[2024-02-18] MEDS: KCL 20 MEQ PO (07:37)
[2024-02-18] MEDS: BUMEX 2 MG IV (07:38)
[2024-02-18] MEDS: COREG 25 MG PO (07:38)
[2024-02-18] MEDS: APRESOLINE 100 MG PO (07:39)
[2024-02-18] MEDS: SYMBICORT 80/4.5 MCG INHALER 2 PUFF INH (07:45)
[2024-02-18] MEDS: SPIRIVA RESPIMAT 2.5 MCG 2 PUFF INH (07:45)
[2024-02-18] MEDS: ProAIR HFA INHALER 2 PUFF INH (07:47)
--- NOTE | 2024-02-18 08:38 | W.PN.HOSP.TC ---
Today's Communication/Plan
-
Cleared by cardiology for discharge today
Assessment / Plan
Assessment / Plan
HPI: 78-year-old male history of asthma, atrial fibrillation on Eliquis, hypertension, hyperlipidemia, asthma, CAD, GERD, HTN, HLD, anxiety, Blue's esophagus presenting with shortness of breath with exertion for the past 5 days.
#Acute hypoxic respiratory insufficiency
Acute on chronic heart failure with a preserved ejection fraction
Appreciate cardiology input, resolving on Bumex 2 mg IV twice daily
Echo 02/15 stable with EF 55-60% and stable MV and TV repairs
Hypoxia resolved, now on room air
PT - no needs
Cleared by cardiology for discharge on Bumex 3 mg p.o. daily
Needs repeat BMP with PCP in 1 week
Follow-up with PCP in 1 week, and cardiology in the office in 2-3 weeks
#Fever
No leukocytosis noted
Tmax yesterday was 100.5
Chest x-ray shows small bilateral pleural effusions, COVID/flu negative
Urine analysis/blood cultures negative to date, fever resolved
#Hypokalemia
Repleted and resolved
#Paroxysmal atrial fibrillation/flutter
Currently normal sinus rhythm, continue Eliquis and Coreg
#Coronary artery disease status post stents and CABG
Continue aspirin, statin, beta-renetta
#Chronic back pain
#Degenerative disc disease
He is ordered Tylenol according to his home regimen
Added tramadol 50 mg 3 times daily as needed, lidocaine patches
#Anemia of chronic disease
� Trend hemoglobin
#Essential Hypertension
-Continue Doxazosin, Coreg and Hydralazine with hold parameter
#Hyperlipidemia
-Continue atorvastatin
#CKD Stage IIIB
-Creatinine stable and at baseline
#GERD/Blue's Esophagus
-Continue Protonix
#BPH
-Continue doxazosin and finasteride
DVT prophylaxis�Eliquis
Full code
Updated at bedside 02/17
Physical Exam
General: No acute distress
HEENT: Normocephalic, Atraumatic, EOMI, MMM
Respiratory: Diminished breath sounds at the bases
Cardiac: Normal S1/S2, Regular Rate and Rhythm
GI: Soft, Nontender, Nondistended, Normal Bowel Sounds
Extremities: No Clubbing, Cyanosis, or Edema
Neuro: Nonfocal/Grossly Intact
Psych: Calm, Cooperative
Anticipated Discharge: Today
Subjective/Interval History
-
Date of Service: February 18, 2024
Patient reports dyspnea with activity much improved, denies shortness of breath at rest. No fever, no vomiting.
Objective Data
-
Labs:
Laboratory Results
02/18/24
06:32
Sodium 138
Potassium 3.8
Chloride 105
Carbon Dioxide 27
BUN 32 H
Creatinine 1.2
Glucose 95
Calcium 9.3
Vital Signs:
Vital Signs
Temp Pulse Resp BP Pulse Ox
98.2 F 70 14 136/56 94
02/18/24 07:12 02/18/24 07:58 02/18/24 07:58 02/18/24 07:36 02/18/24 03:10
I&O
02/17/24 02/18/24 02/19/24
06:59 06:59 06:59
Intake Total 240 / 240 1180 / 1180
Output Total 2555 / 2555 1304 / 1304
Balance -2315 / -2315 -124 / -124
[2024-02-18 11:40] VITALS: BP 154/67
--- NOTE | 2024-02-18 11:41 | W.PN.CD ---
Addendum entered and electronically signed by Devante Guerrero MD 02/18/24 13:06:
Patient seen and examined in collaboration with CONSULTING SALES EXECUTIVE; agree with below.
-Volume status improved.
-Can discharge to home today on Bumex 3 mg PO daily.
-Outpatient follow-up with Cardiology will be arranged.
Original Note:
Today's Communication / Plan
-
Plan d/c home on bumex 3mg po daily
BMP in 1-2 weeks
Cardiology office will call to set up follow up appointment next week.
Impression / Plan
-
Pt. feels breathing has improved since admit. No new complaints today .
Atyzw-ak-onwpirw HFpEF:
-echo 02/15 stable with EF 55-60% and stable MV and TV repairs
-will transition bumex to 3mg po daily for d/c . he likes to take it at noon at home.Reviewed with pt to watch weight at home and for recurrent symptoms.
-office will call next week to set up OP follow up
Low-grade fever:
-infectious eval per hospitalist
PAF, hx Typical aflutter:
-stable in SR
-continue coreg and follow telemetry: atrial paced
-continue Eliquis for OAC
CAD with hx stenting and CABG:
-stable without CP
-continue ASA, statin, BB
Hx TV and MV repair:
-stable by recent echo
HTN:
-on multidrug regimen- continue
-monitor with diuresis
Physical Exam
Vital Signs/Labs
Vital Signs
Temp Pulse Resp BP Pulse Ox
98.2 F 70 14 136/56 94
02/18/24 07:12 02/18/24 07:58 02/18/24 07:58 02/18/24 07:36 02/18/24 03:10
02/17/24 02/18/24 02/19/24
06:59 06:59 06:59
Actual Weight 79.52 kg 78.216 kg
02/17/24 06:36
02/18/24 06:32
Magnesium 2.0 mg/dl (1.6-2.3) 02/17/24 06:36
Triglycerides 64 mg/dl (10-149) 02/16/24 06:06
LDL Cholesterol, Calc 67 mg/dl 02/16/24 06:06
VLDL Cholesterol, Calc 12 mg/dl (0-30) 02/16/24 06:06
HDL Cholesterol 49 mg/dl 02/16/24 06:06
Free T4 1.64 ng/dl (0.78-2.19) 02/16/24 06:06
02/15/24
15:15
Ipw-J-Komemfbfpjv Pept 4070
LAB Results
02/15/24 02/16/24 02/16/24
15:15 02:10 06:06
Troponin I 0.024 0.017 0.020
02/16/24
11:28
Troponin I 0.019
Physical Exam
Constitutional: No acute distress
Cardiovascular: Rhythm & rate is regular and Pedal edema is absent
Respiratory: Respiratory effort normal and Lungs clear to auscul.
GI: Soft, Non tender and Normal bowel sounds
Neuro/Psych: AO x 3
Data Reviewed
-
Date of Service: February 18, 2024
EKG: Other (Tele:[facility])
--- NOTE | 2024-02-18 13:05 | W.DCSUMMARY ---
Discharge Summary
Discharge Data
Date of Admission: 02/15/24
Date of Discharge: 02/18/24
-
Pending Results: No
Hospital Course
Discharge diagnosis:
Acute hypoxic respiratory insufficiency
Acute on chronic heart failure with preserved ejection fraction
Fever of unknown origin
Hypokalemia
Paroxysmal atrial fibrillation/flutter on Eliquis
Coronary artery disease
Chronic back pain
Consults: Cardiology
Hospital course:
78-year-old male with a past medical history of CHF, paroxysmal atrial fibrillation on Eliquis, CAD, hypertension, hyperlipidemia, and chronic back pain was admitted for acute hypoxic respiratory insufficiency secondary to acute heart failure with a
preserved ejection fraction. Patient was seen in conjunction with cardiology. He is on Bumex 2 mg p.o. daily at home. He was diuresed with Bumex 2 mg IV twice daily.
Patient was also noted to have a fever upon admission. He did not have any leukocytosis. Chest x-ray was negative for pneumonia, he was COVID/flu negative, blood and urine cultures negative for infection. His fever resolved.
Patient had hypokalemia, which was repleted and resolved.
Patient's hypoxia resolved. He diuresed well. Patient is medically stable and cleared by cardiology for discharge on Bumex 3 mg p.o. daily. He needs to follow-up with his primary care doctor in 1 week, and cardiology in the office in 2-3 weeks.
He will need a BMP checked with his PCP in 1 week.
Disposition: Home self-care
Discharge planning: Required 36-minute
Discharge Plan
-
Patient Disposition: Home (Routine Discharge)
Discharge Diagnosis/Procedures: Transient hypoxia, acute heart failure with a preserved ejection fraction, transient fever, paroxysmal atrial fibrillation on Eliquis, coronary artery disease, chronic back pain
Condition: Good
Diet: 2 Gram Sodium
Activity: As tolerated
Driving Restrictions: As prior to admission
Blood Work: BMP in 1 week with your PCP
Activity Restrictions/Additional Instructions:
Cardiology has increased your Bumex to 3 mg by mouth daily.
Please follow-up with your primary care doctor in 1 week, and cardiology in the office in 2-3 weeks.
Instructions: *CBC Heart Failure Instructions
Referrals:
Fabián Alvarez MD [Active] - (Office will call you next week to set up follow up appointment )
Jose J Delcid MD [Family Provider] - in one week
Prescriptions:
New
tramadol 50 mg Tablet
50 mg PO BIDPRN PRN (Reason: moderate pain) Qty: 30 0RF
bumetanide 1 mg tablet
3 mg PO DAILY Qty: 90 0RF
Continued
lorazepam 1 MG tablet
0.5 mg PO TIDPRN PRN (Reason: anxiety)
Patient Comments:
02/15/2024: last filled 01/23/24, 45 tabs for 30 days from [facility]
zolpidem 10 MG tablet
5 mg PO BID@0200,2100
Patient Comments:
02/15/2024: last filled 01/23/24, 30 tabs for 30 days from [facility]
Eliquis 5 MG tablet
5 mg PO BID
mometasone 50 mcg/actuation [place],Non-Aerosol
1 spray INTRANASAL BID
finasteride 5 mg Tablet
5 mg PO DAILY
Trelegy Ellipta 100-62.5-25 mcg Blister With Device
1 inh INHALATION R DAILY
potassium chloride 20 mEq tablet extended release
20 meq PO BID Qty: 180 3RF
atorvastatin 80 mg tablet
80 mg PO QPM
Patient Comments:
05/27/2023: Spouse unsure of when medications is given
carvedilol 25 mg tablet
25 mg PO BID
doxazosin 8 mg tablet
8 mg PO BID
hydralazine 100 mg tablet
100 mg PO TID
albuterol sulfate 90 mcg/actuation HFA aerosol inhaler
2 puff INHALATION BID
lutein 20 mg Capsule
20 mg PO DAILY
sennosides [Senna Laxative] 8.6 mg Tablet
17.2 mg PO DAILY
lidocaine 4 % Adhesive Patch,Medicated
2 patch TOPICAL HS
Rx Instructions:
apply 2 patches to lower back
acetaminophen 500 mg Tablet
1,000 mg PO BID@1800,2200
J-Pkngls-V-Cysteine
600 mg PO DAILY
Discontinued
bumetanide 2 mg tablet
2 mg PO NOON
Discharge Orders:
Discharge Patient (As Directed); Ordered 02/18/24
Ordered By: Lázaro Lindsey
Discharge Date and Time
Discharge Date/Time: 02/18/24 14:09
Print Language: EGYPTIAN
--- NOTE | 2024-02-18 13:09 | CM ---
Chart reviewed and patient has been cleared for discharge today, home no needs.
Plan; Home no needs.
--- NOTE | 2024-02-20 11:46 | W.HF.CON ---
Heart Failure
- LV Function
Left ventricular function study result: LV Ejection fraction >40%
Ejection Fraction Percentage: 55-60
- ARNI
Patient already on ARNI: No
Heart Failure ARNI Not Indicated: LV Ejection Fraction >/= 40%
- ACEI/ARB
Patient already on ACEI/ARB: No
Heart Failure ACEI/ARB Not Indicated: LV Ejection Fraction > 40%
- Beta Gaurav
Patient already on Evidence Based Beta Gaurav: Yes
- Mineralocorticord Receptor Antagonist
Patient already on MRA: No
Heart Failure MRA Not Indicated: LV Ejection Fraction > 40%
- SGLT-2 Inhibitor
Patient already on SGLT-2 Inhibitor: No
Heart Failure SGLT-2 Inhibitor Not Indicated: LV Ejection Fraction >40%
- Afib Anticoagulation
Patient already on Anticoagulation for Afib: Yes
- NYHA CHF Classification
NYHA CHF Classification Level: Class III - Symptoms w/ min exertion, interferes w/ nml daily activity
- ACC/AHA Stage
ACC/AHA Stage: Stage C: Symptomatic Heart Failure
== END 2024-02-18 14:09 | disposition home or self-care (01) | DRG 291 ==
LOC: 4 WEST ACU 22:57
PROVIDERS: Emergency Medicine; Registered Nurse; ADMITTING PHYSICIAN Hospitalist; ATTENDING PHYSICIAN Family Medicine; EMERGENCY PHYSICIAN Emergency Medicine; FAMILY PHYSICIAN Family Medicine; OTHER PHYSICIAN Internal Medicine
DX: I13.0 Hypertensive heart and chronic kidney disease with heart failure and stage 1 through stage 4 chronic kidney disease, or unspecified chronic kidney disease (principal); I50.33 Acute on chronic diastolic (congestive) heart failure; I44.2 Atrioventricular block, complete; I48.92 Unspecified atrial flutter; I27.20 Pulmonary hypertension, unspecified; D63.8 Anemia in other chronic diseases classified elsewhere; Z95.2 Presence of prosthetic heart valve; J44.9 Chronic obstructive pulmonary disease, unspecified; N18.32 Chronic kidney disease, stage 3b; I07.1 Rheumatic tricuspid insufficiency; Z95.1 Presence of aortocoronary bypass graft; Z79.01 Long term (current) use of anticoagulants; R09.02 Hypoxemia; R06.89 Other abnormalities of breathing; I48.0 Paroxysmal atrial fibrillation; I25.10 Atherosclerotic heart disease of native coronary artery without angina pectoris; K22.70 Barrett's esophagus without dysplasia; K21.9 Gastro-esophageal reflux disease without esophagitis; F41.1 Generalized anxiety disorder; N40.0 Benign prostatic hyperplasia without lower urinary tract symptoms; G89.29 Other chronic pain; M54.50 Low back pain, unspecified; E87.6 Hypokalemia; H54.8 Legal blindness, as defined in USA; R50.9 Fever, unspecified; Z79.899 Other long term (current) drug therapy; Z95.0 Presence of cardiac pacemaker; Z85.828 Personal history of other malignant neoplasm of skin; Z87.891 Personal history of nicotine dependence; Z95.5 Presence of coronary angioplasty implant and graft; Z11.52 Encounter for screening for COVID-19
CPT/HCPCS: 71046; 80048; 80053; 80061; 81003; 82248; 83605; 83735; 83880; 84100; 84439; 84443; 84484; 85025; 85027; 87040; 87502; 87811; 93005; 93306; 94640; 96374; 97116; 97162; 99285

== ENCOUNTER → 2024-02-24 09:37 | Outpatient (REF) | payer BC, MEDICARE, SELFPAY ==
[2024-02-24 12:54] LABS: Blood Urea Nitrogen 34 mg/dl (9-20); Calcium 9.1 mg/dl (8.4-10.2); Carbon Dioxide 26 mmol/L (22-30); Chloride 106 mmol/L (98-107); Glucose 89 mg/dl (70-99); Potassium 4.5 mmol/L (3.5-5.1); Sodium 139 mmol/L (135-145); eGFR 55.88
== END ==
LOC: RAD 09:37
PROVIDERS: ATTENDING PHYSICIAN Internal Medicine Endocrinology, Diabetes & Metabolism; FAMILY PHYSICIAN Family Medicine
DX: E04.2 Nontoxic multinodular goiter (principal); I50.33 Acute on chronic diastolic (congestive) heart failure
CPT/HCPCS: 36415; 76536; 80048

== ENCOUNTER → 2024-03-16 06:36 | Outpatient (REF) | payer BC, MEDICARE, SELFPAY ==
[2024-03-16 07:27] LABS: % Basophils 1.2 % (0-2); % Eosinophils 5.7 % (0-6); % Immature Granulocytes 0.5 % (0-0.5); % Lymphocytes 21.8 % (20.5-51.1); % Monocytes 14.4 % (1.7-9.3); % Neutrophils 56.4 % (42.2-75.2); Absolute Basophils 0.1 10^3/uL (0-0.2); Absolute Eosinophils 0.2 10^3/uL (0-0.7); Absolute Lymphocytes 0.9 10^3/uL (1.2-3.4); Absolute Monocytes 0.6 10^3/uL (0.1-0.6); Absolute Neutrophils 2.3 10^3/uL (1.4-6.5); Hematocrit 33.5 % (39.0-52.0); Hemoglobin 11.3 g/dL (13.0-18.0); Mean Corp Hgb Conc. 33.7 g/dL (33.0-37.0); Mean Corpuscular Hgb 32.2 pg (27.0-31.0); Mean Corpuscular Volume 95.4 fL (80.0-94.0); Mean Platelet Volume 11.1 fL (7.4-10.4); Nucleated Red Blood Cells % 0 % (-); Platelet Count 147 10^3/uL (130-400); Red Blood Cell Count 3.51 10^6/uL (4.70-6.10); Red Cell Dist. Width 16.4 % (11.5-14.5)
[2024-03-16 07:55] LABS: Iron 88 ug/dl (49-181)
[2024-03-16 08:05] LABS: Percent Saturation 33 % (20-50); Total Iron Binding Capacity 261 ug/dl (261-462)
== END ==
LOC: REG 06:36
PROVIDERS: ATTENDING PHYSICIAN Specialist
DX: D50.9 Iron deficiency anemia, unspecified (principal)
CPT/HCPCS: 36415; 82728; 83540; 83550; 85025

== ENCOUNTER → 2024-03-23 06:28 | Day surgery (SDC) | payer BC, MEDICARE, SELFPAY | LOC: GI 06:28 | PROVIDERS: ATTENDING PHYSICIAN Specialist | DX: Z12.11 Encounter for screening for malignant neoplasm of colon (principal); K63.89 Other specified diseases of intestine; K56.2 Volvulus; K64.8 Other hemorrhoids; Z86.010 Personal history of colon polyps; Z98.890 Other specified postprocedural states; Z79.01 Long term (current) use of anticoagulants; Z09 Encounter for follow-up examination after completed treatment for conditions other than malignant neoplasm | CPT/HCPCS: 45380; 88305 ==

== ENCOUNTER → 2024-04-28 07:26 | Outpatient (REF) | payer BC, MEDICARE, SELFPAY ==
[2024-04-28 08:40] LABS: % Eosinophils 4.8 % (0-6); % Immature Granulocytes 0.2 % (0-0.5); % Lymphocytes 17.2 % (20.5-51.1); % Monocytes 12.2 % (1.7-9.3); % Neutrophils 64.6 % (42.2-75.2); Absolute Eosinophils 0.2 10^3/uL (0-0.7); Absolute Lymphocytes 0.7 10^3/uL (1.2-3.4); Absolute Monocytes 0.5 10^3/uL (0.1-0.6); Absolute Neutrophils 2.7 10^3/uL (1.4-6.5); Hematocrit 33.8 % (39.0-52.0); Hemoglobin 11.1 g/dL (13.0-18.0); Mean Corp Hgb Conc. 32.8 g/dL (33.0-37.0); Mean Corpuscular Hgb 30.8 pg (27.0-31.0); Mean Corpuscular Volume 93.9 fL (80.0-94.0); Mean Platelet Volume 10.9 fL (7.4-10.4); Nucleated Red Blood Cells % 0 % (-); Platelet Count 153 10^3/uL (130-400); Red Cell Dist. Width 16.2 % (11.5-14.5); White Blood Cell Count 4.2 10^3/uL (4.8-10.8)
[2024-04-28 09:14] LABS: ALT (SGPT) 18 U/L (0-50); AST (SGOT) 23 U/L (17-59); Albumin 3.9 g/dl (3.5-5.0); Alkaline Phosphatase 53 U/L (38-126); Blood Urea Nitrogen 40 mg/dl (9-20); Calcium 9.2 mg/dl (8.4-10.2); Carbon Dioxide 28 mmol/L (22-30); Chloride 108 mmol/L (98-107); Glucose 95 mg/dl (70-99); Iron 99 ug/dl (49-181); Magnesium 2.3 mg/dl (1.6-2.3); Sodium 146 mmol/L (135-145); Total Bilirubin 0.9 mg/dl (0.2-1.3); Total Protein 6.6 g/dl (6.3-8.2); eGFR 55.88
[2024-04-28 09:25] LABS: Percent Saturation 33 % (20-50); Total Iron Binding Capacity 294 ug/dl (261-462)
[2024-04-28 09:27] LABS: Vitamin D, 25-OH*** 43.7 ng/mL (30-80)
[2024-04-28 09:45] LABS: Ferritin 69.7 ng/ml (17.9-464.0)
[2024-04-28 10:00] LABS: Vitamin B12 > 1000 pg/ml (239-931)
[2024-04-29 17:40] LABS: Erythropoietin (EPO) 15 mU/mL (4-27)
== END ==
LOC: REG 07:26
PROVIDERS: ATTENDING PHYSICIAN Specialist; FAMILY PHYSICIAN Family Medicine; REFERRING PHYSICIAN Internal Medicine
DX: D50.8 Other iron deficiency anemias (principal); Z01.89 Encounter for other specified special examinations; Z79.899 Other long term (current) drug therapy; I10 Essential (primary) hypertension
CPT/HCPCS: 36415; 80053; 82306; 82607; 82668; 82728; 83540; 83550; 83735; 85025

== ENCOUNTER → 2024-07-31 06:25 | Outpatient (REF) | payer BC, SELFPAY ==
[2024-07-31 07:49] LABS: % Basophils 1.1 % (0-2); % Eosinophils 5.2 % (0-6); % Immature Granulocytes 0.2 % (0-0.5); % Lymphocytes 18.8 % (20.5-51.1); % Monocytes 11.1 % (1.7-9.3); % Neutrophils 63.6 % (42.2-75.2); Absolute Basophils 0.1 10^3/uL (0-0.2); Absolute Eosinophils 0.2 10^3/uL (0-0.7); Absolute Lymphocytes 0.8 10^3/uL (1.2-3.4); Absolute Monocytes 0.5 10^3/uL (0.1-0.6); Absolute Neutrophils 2.8 10^3/uL (1.4-6.5); Hemoglobin 11.4 g/dL (13.0-18.0); Mean Corp Hgb Conc. 33.5 g/dL (33.0-37.0); Mean Corpuscular Hgb 32.1 pg (27.0-31.0); Mean Corpuscular Volume 95.8 fL (80.0-94.0); Mean Platelet Volume 11.2 fL (7.4-10.4); Nucleated Red Blood Cells % 0 % (-); Platelet Count 135 10^3/uL (130-400); Red Blood Cell Count 3.55 10^6/uL (4.70-6.10); Red Cell Dist. Width 15.2 % (11.5-14.5); White Blood Cell Count 4.4 10^3/uL (4.8-10.8)
[2024-07-31 08:06] LABS: Iron 53 ug/dl (49-181)
[2024-07-31 08:17] LABS: Percent Saturation 16 % (20-50); Total Iron Binding Capacity 320 ug/dl (261-462)
[2024-07-31 08:38] LABS: Ferritin 46.2 ng/ml (17.9-464.0)
== END ==
LOC: REG 06:25
PROVIDERS: ATTENDING PHYSICIAN Specialist; FAMILY PHYSICIAN Family Medicine; OTHER PHYSICIAN Internal Medicine
DX: D64.9 Anemia, unspecified (principal)
CPT/HCPCS: 36415; 82728; 83540; 83550; 85025

== ENCOUNTER → 2024-08-02 09:59 | Outpatient (REF) | payer BC, SELFPAY | LOC: RCS 09:59 | PROVIDERS: REFERRING PHYSICIAN Family Medicine | DX: Z98.890 Other specified postprocedural states (principal) | CPT/HCPCS: 93306 ==

== ENCOUNTER → 2024-09-13 09:56 | Outpatient (REF) | payer BC, SELFPAY ==
[2024-09-13 10:58] LABS: % Eosinophils 12.8 % (0-6); % Immature Granulocytes 0.2 % (0-0.5); % Lymphocytes 14.3 % (20.5-51.1); % Monocytes 12.3 % (1.7-9.3); % Neutrophils 59.4 % (42.2-75.2); Absolute Eosinophils 0.5 10^3/uL (0-0.7); Absolute Lymphocytes 0.6 10^3/uL (1.2-3.4); Absolute Monocytes 0.5 10^3/uL (0.1-0.6); Absolute Neutrophils 2.4 10^3/uL (1.4-6.5); Mean Corp Hgb Conc. 32.4 g/dL (33.0-37.0); Mean Corpuscular Hgb 32.4 pg (27.0-31.0); Mean Corpuscular Volume 100.3 fL (80.0-94.0); Mean Platelet Volume 11.1 fL (7.4-10.4); Nucleated Red Blood Cells % 0 % (-); Platelet Count 131 10^3/uL (130-400); Red Blood Cell Count 3.39 10^6/uL (4.70-6.10); Red Cell Dist. Width 14.9 % (11.5-14.5); White Blood Cell Count 4.1 10^3/uL (4.8-10.8)
[2024-09-13 11:33] LABS: Blood Urea Nitrogen 38 mg/dl (9-20); Calcium 8.9 mg/dl (8.4-10.2); Carbon Dioxide 27 mmol/L (22-30); Chloride 106 mmol/L (98-107); Glucose 95 mg/dl (70-99); Potassium 4.4 mmol/L (3.5-5.1); Sodium 139 mmol/L (135-145); eGFR 50.81
== END ==
LOC: REG 09:56
PROVIDERS: ATTENDING PHYSICIAN Nurse Practitioner Acute Care; FAMILY PHYSICIAN Family Medicine
DX: I48.0 Paroxysmal atrial fibrillation (principal)
CPT/HCPCS: 36415; 80048; 85025

== ENCOUNTER 2024-10-24 01:46 | Emergency (ER) | payer BC, SELFPAY ==
[2024-10-24 02:05] VITALS: BP 145/84
[2024-10-24 02:09] VITALS: BMI 25.7
--- NOTE | 2024-10-24 02:15 | ED.GENMED ---
History of Present Illness
General
Chief Complaint: Heart Rate Problem
Source: patient and spouse
Exam Limitations: none
Time Seen by Provider: 10/24/24 01:52
Nursing documentation reviewed up to this point in time: agreed with
History of Present Illness
History of Present Illness:
Pleasant 79-year-old male presents emergency department with palpitations. Around midnight he awakened with palpitations. He does have a history of paroxysmal atrial fibrillation with ablation. He is on Eliquis. He feels that he was in A-fib.
As quickly as the palpitations started, they ended. Patient reported no chest pain.
Past History
Past History
ED Past Medical History: Arrthythmia (atrial fibrillation), Asthma, CAD, Cancer (basal cell carcinoma with Mohs surgery), GERD, HTN, Hypercholesterolemia, Psychiatric (generalized anxiety disorder), Other (erectile dysfunction, recurrent sinus
infections) and Other (visually impaired, Blue's esophagus)
ED Past Surgical History: Cardiac (cardiac stent placement 2002, ablation for atrial fibrillation 2009, 07/2022 at [facility]: Double bypass, pacemaker, tricuspid valve replacement) and Other (sinus surgery, interlaminar epidural steroid injection 2018)
Social History
Tobacco: Non-smoker (discontinued smoking greater than 10 years prior to 2020)
Alcohol: Occasional
Drug: None
Personal:
Living: with family
Employment: Employed
Family History
Family History: CAD
Phy Exam
General Physical Exam
General Presentation: well appearing
General age: appears stated age and appears older than age
General Skin: warm and dry
General Habitus: normal
General Mental: alert
General Hydration: appears well hydrated
ENT Exam
ENT Exam: EOMI, pharynx normal, neck supple and normocephalic
Eye Exam
Eye Exam: PERRL, cornea clear and conjunctiva normal
Cardiovascular Exam
Cardiovascular Exam: irregularly irregular and occasionally irregular
Pulmonary Exam
Pulmonary Exam: lungs clear, no respiratory distress, no rales, no crackles, no rhonchi, no stridor, no wheezing and no cough
Gastrointestinal Exam
Gastrointestinal Exam: normal bowel sounds, non tender, soft, no organomegaly, no pulsatile mass and non distended
Neurological Exam
Neurological Exam: alert, oriented x3, no motor deficits and speech normal
Musculoskeletal Exam
Musculoskeletal Exam: full ROM and no edema
Skin Exam
Skin Exam: normal color, warm/dry, no rash and no petechia
Psychiatric Exam
Psychiatric Exam: normal mood/affect
Course
Orders/Labs/Results
Orders:
Orders
10/24/24 01:46
ECG [Electrocardiogram (*1)] Urgent
Reason for Study: Atrial Fibrillation
10/24/24 01:47
EKG- Treatment ONCE
10/24/24 02:18
Complete Blood Count/With Diff Urgent
Comprehensive Metabolic Panel Urgent
Abnormal Lab Results
10/24/24
02:18
RBC 4.02 L 10^6/uL
(4.70-6.10)
Hgb 12.8 L g/dL
(13.0-18.0)
Hct 38.4 L %
(39.0-52.0)
MCV 95.5 H fL
(80.0-94.0)
MCH 31.8 H pg
(27.0-31.0)
RDW 14.9 H %
(11.5-14.5)
Absolute Lymphs (auto) 1.0 L 10^3/uL
(1.2-3.4)
Lymphocytes % 17.5 L %
(20.5-51.1)
BUN 50 H mg/dl
(9-20)
Creatinine 1.5 H mg/dL
(0.7-1.3)
Glucose 110 H mg/dl
(70-99)
10/24/24 02:18
10/24/24 02:18
Vital Signs
Initial and Last Documented VS:
Initial Vital Signs
BP
145/84
10/24/24 02:05
Last Documented Vital Signs
Temp Pulse Resp BP Pulse Ox
97.5 F 60 15 147/72 98
10/24/24 02:24 10/24/24 03:45 10/24/24 03:45 10/24/24 03:14 10/24/24 02:11
*Critical Care Note
Total Time (30-74mins, 75-104mins- exclusive of procedures): Not Applicable
Update Note
Update Note:
Patient feeling better
Interrogated report shows no events tonight
Patient to follow-up with Dr. Alvarez
ED Attending Note
-
Portions of this chart may have been created with voice recognition software.� Occasional wrong word or��sound alike� substitutions may have occurred due to the inherent limitations of voice recognition software.
Discharge Plan
Departure
Patient Disposition: Home (Routine Discharge)
Date of Disposition: 10/24/24
Time of Disposition: 03:44
Patient with high blood pressure during this ER visit?: Yes
Condition: Good
Discharge Problem:
Heart palpitations
Instructions: Atrial Fibrillation (DC), Palpitations (DC), BLOOD PRESSURE
Prescriptions:
No Action
lorazepam 1 MG tablet
0.5 mg PO TIDPRN PRN (Reason: anxiety)
Patient Comments:
02/15/2024: last filled 01/23/24, 45 tabs for 30 days from [facility]
zolpidem 10 MG tablet
5 mg PO BID@0200,2100
Patient Comments:
02/15/2024: last filled 01/23/24, 30 tabs for 30 days from [facility]
Eliquis 5 MG tablet
5 mg PO BID
mometasone 50 mcg/actuation [place],Non-Aerosol
1 spray INTRANASAL BID
finasteride 5 mg Tablet
5 mg PO DAILY
Trelegy Ellipta 100-62.5-25 mcg Blister With Device
1 inh INHALATION R DAILY
potassium chloride 20 mEq tablet extended release
20 meq PO BID Qty: 180 3RF
atorvastatin 80 mg tablet
80 mg PO QPM
Patient Comments:
05/27/2023: Spouse unsure of when medications is given
carvedilol 25 mg tablet
25 mg PO BID
doxazosin 8 mg tablet
8 mg PO BID
hydralazine 100 mg tablet
100 mg PO TID
albuterol sulfate 90 mcg/actuation HFA aerosol inhaler
2 puff INHALATION BID
lutein 20 mg Capsule
20 mg PO DAILY
sennosides [Senna Laxative] 8.6 mg Tablet
17.2 mg PO DAILY
lidocaine 4 % Adhesive Patch,Medicated
2 patch TOPICAL HS
Rx Instructions:
apply 2 patches to lower back
acetaminophen 500 mg Tablet
1,000 mg PO BID@1800,2200
U-Oevdpf-W-Cysteine
600 mg PO DAILY
tramadol 50 mg Tablet
50 mg PO BIDPRN PRN (Reason: moderate pain) Qty: 30 0RF
bumetanide 1 mg tablet
3 mg PO DAILY Qty: 90 0RF
Referrals:
Fabián Alvarez MD [Active] -
Nora Jacobs MD [Family Provider] -
Activity Restrictions/Additional Instructions:
Please follow-up with as discussed
It was a pleasure meeting you and taking part in your care. We hope for your continued healing and wellness.
Please read discharge instructions in their entirety. However, they are for general education and may not describe your exact diagnosis at discharge. Information on your ER visit and medical conditions were discussed with you along with appropriate
follow up information...
If indicated, please take your medications as instructed and indicated on discharge paperwork.
Please schedule a follow up appointment as directed. Call to schedule an appointment
Please return to the emergency department with ANY change in, persisting, or worsening of symptoms. If any of your symptoms do not improve, or persist, or become more severe within 6-12 hours, please return to the emergency department for further
care.
Please return to the emergency department if you develop a headache, neck pain/stiffness, fever greater than 100.4F, chest pain, shortness of breath, persistent nausea, vomiting, slurred speech, difficulty walking, numbness/tingling, weakness, signs
of infection or any other symptoms that are worrisome to you.
If you have any questions or concerns please do not hesitate to call the Hospital at or E-mail me directly at [email or web address]
Interventions
Interventions:
*Risk Screen - Suicide Last Done: 10/24/24 02:11
*General Assessment Last Done: 10/24/24 02:11
*Neglect/Abuse Screening Last Done: 10/24/24 02:11
*ED- Fall Risk Assessment Last Done: 10/24/24 02:11
*ED COVID-19 Vaccine History Last Done: 10/24/24 02:11
*Nursing Disposition Last Done: 10/24/24 04:02
ED- Cardiac Assessment Last Done: 10/24/24 02:11
ED- Pulmonary Assessment Last Done: 10/24/24 02:11
Discharge Date and Time
Discharge Date/Time: 10/24/24 04:11
Print Language: AZERI
[2024-10-24 02:29] LABS: % Basophils 0.7 % (0-2); % Eosinophils 2.7 % (0-6); % Immature Granulocytes 0.2 % (0-0.5); % Lymphocytes 17.5 % (20.5-51.1); % Monocytes 8.9 % (1.7-9.3); Absolute Eosinophils 0.2 10^3/uL (0-0.7); Absolute Monocytes 0.5 10^3/uL (0.1-0.6); Absolute Neutrophils 3.8 10^3/uL (1.4-6.5); Hematocrit 38.4 % (39.0-52.0); Hemoglobin 12.8 g/dL (13.0-18.0); Mean Corp Hgb Conc. 33.3 g/dL (33.0-37.0); Mean Corpuscular Hgb 31.8 pg (27.0-31.0); Mean Corpuscular Volume 95.5 fL (80.0-94.0); Mean Platelet Volume 10.4 fL (7.4-10.4); Nucleated Red Blood Cells % 0 % (-); Platelet Count 143 10^3/uL (130-400); Red Blood Cell Count 4.02 10^6/uL (4.70-6.10); Red Cell Dist. Width 14.9 % (11.5-14.5); White Blood Cell Count 5.5 10^3/uL (4.8-10.8)
[2024-10-24 02:54] LABS: ALT (SGPT) 18 U/L (0-50); AST (SGOT) 23 U/L (17-59); Albumin 4.3 g/dl (3.5-5.0); Alkaline Phosphatase 59 U/L (38-126); Blood Urea Nitrogen 50 mg/dl (9-20); Calcium 9.4 mg/dl (8.4-10.2); Carbon Dioxide 26 mmol/L (22-30); Chloride 107 mmol/L (98-107); Estimated Creatinine Clearance 42 ml/min; Glucose 110 mg/dl (70-99); Potassium 4.5 mmol/L (3.5-5.1); Sodium 142 mmol/L (135-145); Total Bilirubin 0.6 mg/dl (0.2-1.3); Total Protein 6.8 g/dl (6.3-8.2); eGFR 46.77
[2024-10-24 03:14] VITALS: BP 147/72
== END 2024-10-24 04:11 | disposition home or self-care (01) ==
LOC: EMR 01:46
PROVIDERS: EMERGENCY PHYSICIAN Student in an Organized Health Care Education/Training Program; FAMILY PHYSICIAN Family Medicine
DX: R00.2 Palpitations (principal); I48.91 Unspecified atrial fibrillation; E78.00 Pure hypercholesterolemia, unspecified; I10 Essential (primary) hypertension; I25.10 Atherosclerotic heart disease of native coronary artery without angina pectoris; J45.909 Unspecified asthma, uncomplicated; Z79.01 Long term (current) use of anticoagulants; Z95.0 Presence of cardiac pacemaker; Z95.2 Presence of prosthetic heart valve; Z95.5 Presence of coronary angioplasty implant and graft
CPT/HCPCS: 99284; 80053; 85025; 93005

== ENCOUNTER → 2024-11-23 09:31 | Outpatient (REF) | payer BC, SELFPAY | LOC: EMG 09:31 | PROVIDERS: ATTENDING PHYSICIAN Psychiatry & Neurology Neurology; FAMILY PHYSICIAN Family Medicine | DX: M54.17 Radiculopathy, lumbosacral region (principal); R20.0 Anesthesia of skin | CPT/HCPCS: 95886; 95909 ==

== ENCOUNTER 2024-11-27 21:33 | Inpatient (IN) | payer BC, SELFPAY ==
[2024-11-27] VITALS (8 sets, daily range): BP systolic 135–163; BP diastolic 58–94; BMI 26.4; BMI 25.2
[2024-11-27 14:12] LABS: % Basophils 0.6 % (0-2); % Eosinophils 10.4 % (0-6); % Immature Granulocytes 0.3 % (0-0.5); % Lymphocytes 8.1 % (20.5-51.1); % Monocytes 12.7 % (1.7-9.3); % Neutrophils 67.9 % (42.2-75.2); Absolute Eosinophils 0.7 10^3/uL (0-0.7); Absolute Lymphocytes 0.6 10^3/uL (1.2-3.4); Absolute Monocytes 0.9 10^3/uL (0.1-0.6); Absolute Neutrophils 4.8 10^3/uL (1.4-6.5); Hematocrit 31.5 % (39.0-52.0); Hemoglobin 10.7 g/dL (13.0-18.0); Mean Corpuscular Hgb 31.4 pg (27.0-31.0); Mean Corpuscular Volume 92.4 fL (80.0-94.0); Mean Platelet Volume 9.8 fL (7.4-10.4); Nucleated Red Blood Cells % 0 % (-); Platelet Count 207 10^3/uL (130-400); Red Blood Cell Count 3.41 10^6/uL (4.70-6.10); Red Cell Dist. Width 14.2 % (11.5-14.5)
[2024-11-27 14:24] LABS: ALT (SGPT) 15 U/L (0-50); Albumin 3.4 g/dl (3.5-5.0); Alkaline Phosphatase 65 U/L (38-126); Blood Urea Nitrogen 28 mg/dl (9-20); Calcium 8.7 mg/dl (8.4-10.2); Carbon Dioxide 26 mmol/L (22-30); Chloride 111 mmol/L (98-107); Glucose 111 mg/dl (70-99); Potassium 4.1 mmol/L (3.5-5.1); Sodium 143 mmol/L (135-145); Total Bilirubin 0.7 mg/dl (0.2-1.3); Total Protein 6.2 g/dl (6.3-8.2); eGFR > 60.00
[2024-11-27 14:25] LABS: AST (SGOT) 18 U/L (17-59)
[2024-11-27 14:35] LABS: NT-proBNP 3280 pg/ml; Troponin I < 0.012 ng/ml
--- NOTE | 2024-11-27 18:14 | ED.GENMED ---
History of Present Illness
General
Chief Complaint: Cardiac Symptoms
Source: patient and spouse
Exam Limitations: none
Time Seen by Provider: 11/27/24 18:03
Nursing documentation reviewed up to this point in time: agreed with
History of Present Illness
History of Present Illness:
79-year-old male presents emergency department complaining of shortness of breath, worse with exertion over the past several days. He has a history of CHF, and is concerned he is retaining fluid. He follows with Dr. Eren Alvarez.
Past History
Past History
ED Past Medical History: Arrthythmia (atrial fibrillation), Asthma, CAD, Cancer (basal cell carcinoma with Mohs surgery), GERD, HTN, Hypercholesterolemia, Psychiatric (generalized anxiety disorder), Other (erectile dysfunction, recurrent sinus
infections) and Other (visually impaired, Blue's esophagus)
ED Past Surgical History: Cardiac (cardiac stent placement 2002, ablation for atrial fibrillation 2009, 07/2022 at [facility]: Double bypass, pacemaker, tricuspid valve replacement) and Other (sinus surgery, interlaminar epidural steroid injection 2018)
Social History
Tobacco: Non-smoker (discontinued smoking greater than 10 years prior to 2020)
Alcohol: Occasional
Drug: None
Personal:
Living: with family
Employment: Employed
Family History
Family History: CAD
Review of Systems
Review of Systems
Allergies reviewed?: Yes
All Other Systems: Not applicable
Constitutional: Reports no symptoms
EENT: Reports no symptoms
Respiratory: Reports trouble breathing
Cardiac: Reports no symptoms
ABD/GI: Reports no symptoms
: Reports no symptoms
Musculoskeletal: Reports no symptoms
Skin: Reports no symptoms
Neurological: Reports no symptoms
Endocrine: Reports no symptoms
Hematologic/Lymphatic: Reports no symptoms
Psychiatric: Reports no symptoms
Phy Exam
Physical Exam
Physical Exam:
Physical Exam
General: Appears uncomfortable
Neck: supple. no meningeal signs. normal posterior pharynx
Heart: s1/s2 regular rate and rhythm, no murmur. equal radial
pulses.
HEENT: Pupils equal round reactive to light, EOMI
Lungs: no acute respiratory distress. Rales bilaterally
Abdomen: normal bowel sounds. not tender. no CVAT
Neuro: alert and oriented. no focal neurological deficits cranial nerves II through XII intact
Skin: no rash
Psychiatric: well kept. interactive and cooperative
Extremities: no edema. no calf tenderness. negative homans. good distal pulses
Scores
Heart Failure Risk
Heart Failure Risk Score: Yes
History of Stroke or TIA: No
History of intubation for respiratory distress: No
Heart rate on ED arrival >/= 110: No
SaO2 <90% on arrival on room air: No
HR >/=110 during 3min walk test (or too ill to perform test): Yes
ECG has acute ischemic changes: No
Urea >/=12mmol/L (BUN 33.6mg/dL): No
Serum CO2>/=35mmol/L: No
Troponin I or T elevated to NM Level (0.4mg/dL): No
NT-proBNP >/=5,000ng/L (5,000pg/ml): No
HF Risk Score: 2
Admission Status: MEDIUM RISK 9.2% Consider observation or discharge to home with homecare & f/u visit to PCP/[facility], or SNF for treatment
Course
Orders/Labs/Results
Orders:
Orders
11/27/24 13:36
ECG [Electrocardiogram (*1)] Urgent
Reason for Study: Shortness of Breath
EKG- Treatment ONCE
11/27/24 13:52
Interrogate Pacemaker- Treatment ONCE
CR Chest - 2 Views Urgent
Comment:
Reason For Exam: respiratory distress
11/27/24 14:01
Complete Blood Count/With Diff Urgent
Comprehensive Metabolic Panel Urgent
NT-proBNP Urgent
Troponin I Urgent
11/27/24 Dinner
Cholesterol Lowering
At Your Request: Non-Participating
Cholesterol Lowering: Sodium, 2 Gram
11/27/24 18:33
Vital Signs- Treatment ONCE
Frequency: Hourly
Comment: weigh patient
11/27/24 19:37
Apixaban [Eliquis] 5 mg PO STAT STA
Furosemide [Lasix] 40 mg IV NOW STA
11/27/24 19:45
Atorvastatin [Lipitor] 80 mg PO QPM
11/27/24 20:53
Admit/Transfer Patient As Directed
Co-Sign Provider:
Level of Care: Inpatient admission
Assign to:: Telemetry
Physician / Group: hospitalist
Diagnosis: CHF exacerbation
Reason for Telemetry: Subacute Heart Failure
Date to Stop Telemetry: 11/29/24
Time to Stop Telemetry: 11:00
Reason for Hospitalization: heart failure
Expected length of stay greater than two midnights?: Yes
ELOS- Estimated Length of Stay in days: 2
I certify the patient meets the requirements for IP care: Yes
PRN Pain Medication Management As Directed
May give lesser potent ordered pain med per pt: Yes
preference::
Protocol:: Medication orders for pain may be administered in a
manner that supports deferring to patient preference
when the pt is:
- Requesting an ordered lesser potent pain medication.
Least to most potent pain medications are defined
as: acetaminophen < NSAID < tramadol < opioids
(morphine, oxycodone, hydromorphone).
- Requesting a lesser dose of the same medication IF
ORDERED.
- Requesting a less intrusive route of administration
if both routes are prescribed by the provider (PO <
IV).
11/27/24 20:56
Code Status As Directed
Resuscitation Status: Full Code
11/27/24 22:00
Flush (0.9% Sodium Chloride) [Flush (Nss)] See Dose Instructions IV PER PROTOCOL
11/27/24 22:03
Acetaminophen [Tylenol] 650 mg PO I90HTNC PRN
Albuterol [ProAIR HFA INHALER] 2 puff INH R BIDPRN PRN
Pulse Ox/exercise [RESP] DAILY
Quantity: 1
11/27/24 22:03
Echo 2D MMode Color/Doppler Routine
Reason for Study: heart failure
HF DIETARY CONSULT Routine
HF EDUCATOR CONSULT Routine
Comment:
VTE Contraindication Routine
VTE Mechanical Device Contraindication: Medical Contraindication
Pharmocologic Contraindication: Medical Contraindication
Activity As Directed
Activity Level: With Assistance
Intake/ Output As Directed
Frequency: Per unit guidelines
Patient Education As Directed
Type: CHF folder
Comment: give on admission. Document in Interdisciplinary Education record
Sleep Apnea Assessment by RN As Directed
Comment:
Physician Instructions:
Vital Signs As Directed
Frequency: Other
Additional Instructions:: Q12 or per unit guidelines if more frequent.
Weight As Directed
Frequency: Daily
Type of Scale: Standing Scale
Comment: Daily morning weight. If unable to stand, use balanced bed scale.
Weight As Directed
Frequency: Once
Type of Scale: Standing Scale
Comment: Upon Admission. If unable to stand, use balanced bed scale.
Pulse Ox/cont/shift [RESP] Routine
Quantity: 1
Special Instructions: Daily pulse oximetry at rest. If greater than 92% at rest also obtain pulse oximetry
while ambulating as tolerated.
Pt Eval And Treat Routine
Activity Level: With Assistance
11/27/24 22:22
Lorazepam [Ativan] 0.5 mg PO TIDPRN PRN
11/27/24 23:00
HydrALAZINE [Apresoline] 100 mg PO TID
11/28/24 02:00
Zolpidem Tartrate [Ambien] 5 mg PO BID@2100,0200
11/28/24 06:00
Basic Metabolic Panel IN AM
Cardiovascular Evaluation IN AM
Complete Blood Count/No Diff IN AM
Magnesium IN AM
TSH Reflex To Free T4 IN AM
11/28/24 08:00
Acetaminophen [Tylenol] 1,000 mg PO BID
Apixaban [Eliquis] 5 mg PO BID
Carvedilol [Coreg] 25 mg PO BID
Finasteride [Proscar] 5 mg PO DAILY
Furosemide [Lasix] 80 mg IV BID AT 0800,1600
Lidocaine [Lidocaine 4% Patch] 2 patch TOPICAL DAILY
Apply Lidocaine patch(s) to:: lower back
Pantoprazole [Protonix] 40 mg PO DAILY
Tamsulosin [Flomax] 0.4 mg PO BID
gbtpbcjbrcy-xegzhatft-kyivqfli [Trelegy Ellipta] 1 inh INH R DAILY
11/28/24 18:00
Atorvastatin [Lipitor] 80 mg PO QPM
11/29/24 06:00
Basic Metabolic Panel IN AM
11/29/24 11:00
DC Protocol for Telemetry ONCE
11/30/24 06:00
Basic Metabolic Panel IN AM
Abnormal Lab Results
11/27/24
14:01
RBC 3.41 L 10^6/uL
(4.70-6.10)
Hgb 10.7 L g/dL
(13.0-18.0)
Hct 31.5 L %
(39.0-52.0)
MCH 31.4 H pg
(27.0-31.0)
Absolute Lymphs (auto) 0.6 L 10^3/uL
(1.2-3.4)
Absolute Monos (auto) 0.9 H 10^3/uL
(0.1-0.6)
Lymphocytes % 8.1 L %
(20.5-51.1)
Monocytes % 12.7 H %
(1.7-9.3)
Eosinophils % 10.4 H %
(0-6)
Chloride 111 H mmol/L
(98-107)
BUN 28 H mg/dl
(9-20)
Glucose 111 H mg/dl
(70-99)
Total Protein 6.2 L g/dl
(6.3-8.2)
Albumin 3.4 L g/dl
(3.5-5.0)
11/27/24 14:01
11/27/24 14:01
Vital Signs
Initial and Last Documented VS:
Initial Vital Signs
Temp Pulse Resp BP Pulse Ox
97.9 F 60 18 135/73 95
11/27/24 13:47 11/27/24 13:47 11/27/24 13:47 11/27/24 13:47 11/27/24 13:47
Last Documented Vital Signs
Temp Pulse Resp BP Pulse Ox
98.1 F 61 20 159/68 95
11/27/24 23:07 11/27/24 23:07 11/27/24 23:07 11/27/24 23:07 11/27/24 23:07
MDM/Problems Addressed
Differential Diagnosis Includes:
CHF exacerbation, pneumonia
MDM/Problems Addressed:
79-year-old male with CHF exacerbation. Lasix given. Admit to hospitalist.
Chronic conditions affecting care: Cardiomyopathy
Acute Exacerbation and/or Progression of Chronic Illness: Cardiomyopathy
*Radiology
Radiology exam reviewed: preliminary read by ED provider (Chest x-ray shows interstitial changes, COPD)
*Pulse Oximetry
Patient hypoxic: no
*EKG
Interpreted by ED Provider?: Yes
EKG Intrepretation Date: 11/27/24
EKG Intrepretation Time: 13:55
Interpretation: abnormal
Comparison EKG: changes noted
Heart Rate: 72
Rate: normal
Rhythm: sinus, av sequential and other (bigeminy)
[place]: normal axis
Interval: normal interval
QRS Pattern: normal QRS
Ischemia: non-specific ST changes
*Critical Care Note
Total Time (30-74mins, 75-104mins- exclusive of procedures): Not Applicable
ED Attending Note
-
Portions of this chart may have been created with voice recognition software.� Occasional wrong word or��sound alike� substitutions may have occurred due to the inherent limitations of voice recognition software.
Discharge Plan
Departure
Patient Disposition: Admit
Date of Disposition: 11/27/24
Time of Disposition: 19:42
Admit to: Telemetry
Presentation/result/management discussed w/ accepting MD/DO: Hospitalist
Patient with high blood pressure during this ER visit?: Yes
Condition: Fair
Discharge Problem:
Acute exacerbation of CHF (congestive heart failure)
Interventions
Interventions:
*Risk Screen - Suicide Last Done: 11/27/24 13:47
*General Assessment Last Done: 11/27/24 13:47
*Neglect/Abuse Screening Last Done: 11/27/24 18:24
*ED- Fall Risk Assessment Last Done: 11/27/24 18:24
*ED COVID-19 Vaccine History Last Done: 11/27/24 23:00
*Nursing Disposition Last Done: 11/27/24 22:26
ED- Pulmonary Assessment Last Done: 11/27/24 18:25
ED- Cardiac Assessment Last Done: 11/27/24 18:25
Discharge Date and Time
Discharge Date/Time: 11/27/24 22:27
[2024-11-27] MEDS: LASIX 40 MG IV (20:02)
[2024-11-27] MEDS: LIPITOR 80 MG PO (20:02)
[2024-11-27] MEDS: ELIQUIS 5 MG PO (20:02)
--- NOTE | 2024-11-27 20:27 | HPS.HSE ---
Family Physician
-
Family Physician: Nora Jacobs MD
Chief Complaint
-
Dyspnea exertion
History of Present Illness
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
replacements coming into the emergency department with worsening dyspnea on exertion.
Patient reports that his symptoms have been worsening for several weeks now mostly over the last 4 weeks but more severe in the last week. He had an MRI to evaluate back pain 1 week ago and he had to hold his Lasix prior to the MRI. When he
arrived home he felt much more short of breath compared to his baseline. He reports that he has oxygen saturation with ambulation into the low 80s and now he takes longer to recover back to the 90s. He denies having any cough fevers or chills. He
denies any nausea vomiting or diarrhea. He denies any chest pain. He denies palpitations. He reports chronic lower extremity edema which is unchanged. He says his weight has been stable and he showed me a chart which showed an average weight of
around 180 pounds with a. -3 pound variation around that over the last 8 weeks. He reports compliance with Bumex 2 mg daily and fluid and salt restrictions. He reported a recent echocardiogram which showed well-seated functioning prosthetic
valve. He is on anticoagulation for his atrial fibrillation and reports compliance.
In the emergency department the patient was afebrile, blood pressure was 156/70 pulse rate of 69 and was satting 94% on room air. ECG shows atrial placed at a rate of 72 with LVH. Chest x-ray shows no acute infiltrates or effusions or any other
acute changes. Troponin was negative. BNP was elevated at 3280.
CBC was unremarkable.
Electrolytes were normal with normal BUN and creatinine compared to baseline.
Medical History
Past Medical History
Past Medical History: Reports Other
Additional Past Medical History:
Coronary Artery Disease
Chronic HFpEF
Paroxysmal Atrial Fibrillation
Complete Heart Block
Essential Hypertension
Hyperlipidemia
CKD Stage III
Asthma/COPD
Severe Pulmonary Hypertension
Blue's Esophagus
BPH
Past Surgical History: Reports Other
Additional Past Surgical History:
Coronary Artery Bypass Graft
Pacemaker
Tricuspid Valve Repair
Mitral Valve Repair
Social History
Tobacco: Non-smoker
Alcohol: None
Living: With Family
Family History
Family History: Not pertinent
Allergies / Home Medications
Allergies reflects when Allergies were last updated in [email or web address].
Home Medications with original date entered in [email or web address]
Allergy/Medication List:
Allergies
Allergy/AdvReac Type Severity Reaction Status Date / Time
celery Allergy throat raw Verified 02/15/24 14:53
and itchy
house dust Allergy ASTHMA Verified 02/15/24 14:53
mold Allergy asthma Verified 02/15/24 14:53
onion Allergy throat raw Verified 02/15/24 14:53
and itch
mildew Allergy asthma Uncoded 02/15/24 14:53
Home Medications
apixaban 5 mg tablet (Eliquis) 5 mg PO BID Blood clot prevention/tx 06/30/21
lorazepam 1 mg tablet 0.5 mg PO TIDPRN PRN anxiety 06/30/21
zolpidem 10 mg tablet 5 mg PO BID@0200,2100 Sleep 06/30/21
finasteride 5 mg tablet 5 mg PO DAILY Urinary Issue 07/01/22
mometasone 50 mcg/actuation nasal spray 1 spray intranasal BID Lung/Breathing Issues 07/01/22
fluticasone fur. 100 mcg-umeclid 62.5 mcg-vilant 25 mcg inhalat.powder (Trelegy Ellipta) 1 inh inhalation R DAILY Lung/Breathing Issues 07/06/22
potassium chloride 20 mEq tablet,extended release 20 meq PO BID #180 tabs 07/06/22
albuterol sulfate 90 mcg/actuation aerosol inhaler 2 puff inhalation R Q6HPRN PRN sob/wheezing 02/18/23
atorvastatin 80 mg tablet 80 mg PO QPM High Cholesterol 02/18/23
bumetanide 2 mg tablet 2 mg PO NOON Fluid Retention/Swelling 02/18/23
carvedilol 25 mg tablet 25 mg PO BID Blood Pressure 02/18/23
doxazosin 8 mg tablet 8 mg PO BID Blood Pressure 02/18/23
hydralazine 100 mg tablet 100 mg PO TID Blood Pressure 02/18/23
lutein 20 mg capsule 20 mg PO DAILY Supplement 02/19/23
lidocaine 4 % topical patch 2 patch topical HS Pain 03/09/23
sennosides 8.6 mg tablet (Senna Laxative) 17.2 mg PO DAILY Constipation 03/09/23
E-Dtifnh-P-Cysteine 600 mg PO DAILY Supplement 05/27/23
acetaminophen 500 mg tablet 1,000 mg PO BID@1800,2200 Pain 05/27/23
Review of Systems
-
Constitutional: Reports No Symptoms
EENT: Reports No Symptoms
Respiratory: Reports Trouble Breathing
Cardiac: Reports No Symptoms
Abdomen/GI: Reports No Symptoms
: Reports No Symptoms
Musculoskeletal: Reports No Symptoms
Skin: Reports No Symptoms
Neurological: Reports No Symptoms
Endocrine: Reports No Symptoms
Hematologic/Lymphatic: Reports No Symptoms
Psych: Reports No Symptoms
Physical Exam
Vital Signs
Vital Signs
Temp Pulse Resp BP Pulse Ox
97.9 F 69 20 156/67 94
11/27/24 13:47 11/27/24 18:30 11/27/24 18:30 11/27/24 18:00 11/27/24 18:30
Physical Exam
General: Well Developed, Well Nourished and No Apparent Distress
HEENT: NormoCephalic, Moist mucous membranes and Atraumatic
Respiratory: Crackles (Faint basilar crackles barely perceptible)
Cardiac: S1/S2 and Regular Rhythm; No Murmur or Rub
GI: Soft, Non Tender, Non Distended and Normal Bowel Sounds; No Organomegaly
Rectal: Deferred by Provider
Genito-urinary: Deferred by me
Musculoskeletal: No Clubbing, No Cyanosis and No Edema
Skin: No Rash
Neuro: AO x 3 and Nonfocal/grossly intact
Hematologic/Lymphatic: No Lymphadenopathy
Psych: Calm
Laboratory Results
-
11/27/24 14:
11/27/24 14:
Laboratory Results
Total Bilirubin 0.7 mg/dl (0.2-1.3) 11/27/24 14:
AST 18 U/L (17-59) 11/27/24 14:
ALT 15 U/L (0-50) 11/27/24 14:
Alkaline Phosphatase 65 U/L (38-126) 11/27/24 14:
Troponin I < 0.012 ng/ml 11/27/24 14:01
Data Reviewed
-
Diagnostic Radiology: Image Personally Visualized and interpreted and Report Reviewed by me
Medical Tests (Nuc Med, Echo, EKG etc): Image Personally Visualized and interpreted
Lab Data: Labs Reviewed by me
Old Records: Reviewed
Impression/Plan
-
IMPRESSION:
This is an 79-year-old with past medical history of congestive heart failure, paroxysmal atrial fibrillation, CAD status post CABG with mitral and aortic valve replacement, presented to the emergency department with progressive dyspnea on exertion
and oxygen saturation not measured at home with exertion. His last echocardiogram did show preserved EF of around 55 to 60% well seated, normal functioning #32 Medtronic Profile 3D mitral valve repair.
Well seated, #30 Medtronic MC# [id number] tricuspid valve repair. Moderate tricuspid regurgitation (may be underestimated due to acoustic shadowing). However they noted severe pulmonary hypertension.
PLAN:
Dyspnea on Exertion -patient with progressive dyspnea on exertion and hypoxia with ambulation out of proportion to any weight gain, crackles on x-ray or pulmonary edema on x-ray. While there is concern for CHF exacerbation, there is limited to
minimal concern for PE given patient is anticoagulated, and concern also remains for worsening pulmonary hypertension and worsening left ventricular end-diastolic pressure. No murmurs on exam. No signs of infection or asthma exacerbation.
- admit to telemetry
- increase diuresis to lasix 80mg iv bid for now for aggressive weight loss
- daily weights and i/os
- check resting and ambulating sats with weight loss
- if remains hypoxic may need right heart cath
- continue carvedilol, continue hydralazine with hold parameters
- echo
- cardiology consultation
Atrial fibrillation - paced rhythm
- continue eliquis 5 bid
- continue coreg
PT eval
DVT PPX - on apixaban
Code status - full code
[2024-11-27] MEDS: APRESOLINE 100 MG PO (23:09)
--- NOTE | 2024-11-27 23:15 | PTCARENOTE ---
Pt arrived to room 437-02. Pt ambulated from stretcher to bed with x1 assist. Pt AAOx3, VSS. Pt oriented to room, call connelly placed within reach. Bed alarm plugged in.
[2024-11-28] VITALS (7 sets, daily range): BP systolic 139–158; BP diastolic 68–78; PULSE 64–98; O2SAT 91–97; BMI 25.0
[2024-11-28] MEDS: LIDOCAINE 4% PATCH 1 PATCH TOPICAL (01:43)
[2024-11-28] MEDS: TYLENOL 650 MG PO (01:44)
[2024-11-28] MEDS: AMBIEN 5 MG PO (01:44)
[2024-11-28 07:28] LABS: Hematocrit 27.6 % (39.0-52.0); Hemoglobin 9.4 g/dL (13.0-18.0); Mean Corp Hgb Conc. 34.1 g/dL (33.0-37.0); Mean Corpuscular Hgb 31.1 pg (27.0-31.0); Mean Corpuscular Volume 91.4 fL (80.0-94.0); Platelet Count 201 10^3/uL (130-400); Red Blood Cell Count 3.02 10^6/uL (4.70-6.10); Red Cell Dist. Width 14.2 % (11.5-14.5); White Blood Cell Count 6.4 10^3/uL (4.8-10.8)
--- NOTE | 2024-11-28 07:49 | W.PN.HOSP.TC ---
Today's Communication/Plan
-
- echo
- PT/OT
Assessment / Plan
Assessment / Plan
Assessment:
79yo M [facility] HFpEF (LVEF 55-60%), CAD s/p stent, afib s/p ablation on eliquis, mitral and tricuspid valve insufficiency s/p valve replacements, HTN, HLD, CKD stage III, MATT presented to [facility] ED for SOB and increasing MILLER. This has been worsening over
the past month, but more severe over the last week after holding lasix for a back MRI for back pain.
Plan:
MILLER
Acute on chronic HFpEF (LVEF 55-60%)
CAD s/p stent s/p CABG
- CXR: No acute disease of the chest. Moderate elevation of the left hemidiaphragm. Progressed. Flattening of the right hemidiaphragm suggesting COPD. Progressed.
- echo 08/02/24: LVEF 55-60%, Well seated, normal functioning #32 Medtronic Profile 3D mitral valve repair. Well seated, #30 Medtronic MC# [id number] tricuspid valve repair. Moderate tricuspid regurgitation (may be underestimated due to acoustic
shadowing). Severe pulmonary hypertension.
- lasix 80mg BID
- daily I/O's
- keep K>4, Mg>2
- echo: LVEF 55-60%. Hx mitral valve repair - Mean gradient 3mmHg - trace mitral regurgitation. Mild aortic regurgitation. Hx - tricuspid valve repair Mean gradient 2mmHg - mild tricuspid regurgitation.
- appreciate cardiology input
- PT/OT eval
Afib- paced, on eliquis
- cont home eliquis
- cont home coreg
- on tele
BPH
- cont finasteride
MATT
- cont home lorazepam
GERD
- cont home PPI
COPD
- cont trelegy, albuterol sulfate
HTN/HLD
- cont home meds
Coronary Artery Disease
CKD Stage III
Severe Pulmonary Hypertension
Blue's Esophagus
Pacemaker
Tricuspid Valve Repair
Mitral Valve Repair
Diet: cholesterol lowering
DVT PPX - on apixaban
Code status - full code
Anticipated Discharge: Within 24 hours
Subjective/Interval History
-
Date of Service: November 28, 2024
79yo M [facility] HFpEF (LVEF 55-60%), CAD s/p stent, afib s/p ablation, mitral and tricuspid valve insufficiency s/p valve replacements, HTN, HLD, CKD stage III, MATT presented to [facility] ED for SOB and increasing MILLER. This has been worsening over the past
month, but more severe over the last week after holding lasix for a back MRI for back pain.
Objective Data
-
Labs:
Laboratory Results
11/28/24
06:49
WBC 6.4
Hgb 9.4 L
Hct 27.6 L
Plt Count 201
Sodium Pending
Potassium Pending
Chloride Pending
Carbon Dioxide Pending
BUN Pending
Creatinine Pending
Glucose Pending
Calcium Pending
Vital Signs:
Vital Signs
Temp Pulse Resp BP Pulse Ox
98.2 F 63 18 139/68 93
11/28/24 04:17 11/28/24 04:17 11/28/24 04:17 11/28/24 04:17 11/28/24 04:17
I&O
11/27/24 11/28/24 11/29/24
06:59 06:59 06:59
Intake Total 240 / 240
Output Total 650 / 650
Balance -410 / -410
Review of Systems
-
History Source: Patient
Constitutional: Reports No Symptoms
EENT: Reports No Symptoms Reported
Respiratory: Reports No Symptoms
Cardiac: Reports No Symptoms
Abdomen/GI: Reports No Symptoms
Musculoskeletal: Reports Muscle Pain
Skin: Reports No Symptoms
Neuro: Reports No Symptoms
Physical Exam
-
General: Well Developed and Well Nourished
HEENT: Normocephalic and Atraumatic
Respiratory: Clear to Auscultation and Non Labored Respirations
Cardiac: S1/S2 and Irregular Rhythm
GI: Soft, Nontender, Nondistended and Normal Bowel Sounds
Musculoskeletal: No Clubbing, No Cyanosis, Edema, Right Lower Extrem and Edema, Left Lower Extrem
Skin: Warm and Dry
Neuro: Awake and AO x 3
Psych: Calm
[2024-11-28 07:52] LABS: Blood Urea Nitrogen 27 mg/dl (9-20); Calcium 8.6 mg/dl (8.4-10.2); Carbon Dioxide 28 mmol/L (22-30); Chloride 110 mmol/L (98-107); Estimated Creatinine Clearance 57 ml/min; Glucose 95 mg/dl (70-99); HDL Cholesterol 43 mg/dl; LDL Cholesterol, Calculated 53 mg/dl; Magnesium 2.1 mg/dl (1.6-2.3); Potassium 3.4 mmol/L (3.5-5.1); Sodium 143 mmol/L (135-145); Total Cholesterol 107 mg/dl (50-199); Triglyceride 56 mg/dl (10-149); Very Low Density Lipoprotein 11 mg/dl (0-30); eGFR > 60.00
[2024-11-28] MEDS: SPIRIVA RESPIMAT 2.5 MCG 2 PUFF INH (08:06)
[2024-11-28] MEDS: SYMBICORT 80/4.5 MCG INHALER 2 PUFF INH (08:06)
[2024-11-28] MEDS: APRESOLINE 100 MG PO ×2 (08:23→15:32)
[2024-11-28] MEDS: COREG 25 MG PO (08:24)
[2024-11-28] MEDS: LASIX 80 MG IV ×2 (08:25→15:33)
[2024-11-28] MEDS: FLOMAX 0.4 MG PO (08:25)
[2024-11-28] MEDS: LIDOCAINE 4% PATCH 2 PATCH TOPICAL (08:26)
[2024-11-28] MEDS: PROTONIX 40 MG PO (08:26)
[2024-11-28] MEDS: PROSCAR 5 MG PO (08:26)
[2024-11-28] MEDS: ELIQUIS 5 MG PO (08:26)
[2024-11-28] MEDS: TYLENOL 1000 MG PO (08:27)
[2024-11-28] MEDS: KCL 40 MEQ PO ×2 (08:27→12:44)
--- NOTE | 2024-11-28 15:34 | W.DCSUMMARY ---
Discharge Summary
Discharge Data
Date of Admission: 11/27/24
Date of Discharge: 11/28/24
-
Pending Results: No
Hospital Course
Discharging Physician : Dr. Lily Vu, Dr. Ney Deutsch
Disposition : home
Primary care physician : Nora Jacobs MD
Principal Discharge diagnosis : MILLER, CHF
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
Hospital Course : Presented to [facility] ED 11/27 for SOB and increasing MILLER. This has been worsening over the past month, but more severe over the last week after holding lasix for a back MRI for back pain. ECG NSR w PVCs. CXR w/o acute cardiopulmonary
process. Pt diuresed w 80mg lasix bid. Pt felt better the next day. Echo wnl, able to ambulate w minimal drop in pulseox.
Important imaging findings :
Echo:
Normal biventricular size and systolic function without regional wall motion
abnormality. Estimated LVEF 55-60%.
Hx mitral valve repair - Mean gradient 3mmHg - trace mitral regurgitation.
Mild aortic regurgitation.
Hx - tricuspid valve repair - Mean gradient 2mmHg - mild tricuspid
regurgitation.
CXR:
No acute disease of the chest. Moderate elevation of the left hemidiaphragm. Progressed. Flattening of the right hemidiaphragm suggesting COPD. Progressed.
Procedure findings : n/a
Discharge Plan
-
Patient Disposition: Home (Routine Discharge)
Discharge Diagnosis/Procedures: Dyspnea on Exertion, Congestive Heart Failure
Condition: Good
Diet: 2 Gram Sodium
Activity: No restrictions
Driving Restrictions: As prior to admission
Bathing Restrictions: OK to Shower
Instructions: Shortness of breath
Referrals:
Nora Jacobs MD [Family Provider] - in one week
Prescriptions:
Continued
lorazepam 1 MG tablet
0.5 mg PO TIDPRN PRN (Reason: anxiety)
zolpidem 10 MG tablet
5 mg PO BID@2100,0200
Eliquis 5 MG tablet
5 mg PO BID
mometasone [Nasonex 24hr Allergy] 50 mcg/actuation [place],Non-Aerosol
1 spray INTRANASAL BID
finasteride 5 mg Tablet
5 mg PO DAILY
Trelegy Ellipta 100-62.5-25 mcg Blister With Device
1 inh INHALATION R DAILY
atorvastatin 80 mg tablet
80 mg PO QPM
carvedilol 25 mg tablet
25 mg PO BID
doxazosin 8 mg tablet
8 mg PO BID
hydralazine 100 mg tablet
100 mg PO TID
albuterol sulfate 90 mcg/actuation HFA aerosol inhaler
2 puff INHALATION R BIDPRN PRN (Reason: sob)
lutein 20 mg Capsule
20 mg PO DAILY
lidocaine 4 % Adhesive Patch,Medicated
2 patch TOPICAL DAILY
Rx Instructions:
apply 2 patches to lower back
acetaminophen 500 mg Tablet
1,000 mg PO BID
J-Htgsch-Y-Cysteine
600 mg PO DAILY
therapeutic multivitamin Tablet
1 tab PO DAILY
omeprazole 20 mg Tablet,Delayed Release (Dr/Ec)
20 mg PO DAILY
bumetanide 1 mg tablet
2 mg PO DAILY@1200
Discharge Orders:
Discharge Patient (As Directed); Ordered 11/28/24
Ordered By: Lily Vu
Discharge Date and Time
Print Language: GREENLANDIC
--- NOTE | 2024-11-28 15:41 | CM ---
crane manager reviewed patient's chart and patient resides with his spouse in a 2 story home, with 3 steps to enter, patient is independent with adl's and ambulation, telephonic case manager offered patient visiting nurses however patient declined.
PCP: Nora Jacobs
Pharmacy; [facility]
Plan; Home when stable, patient declined visiting nurses.
== END 2024-11-28 17:56 | disposition home or self-care (01) | DRG 291 ==
LOC: 4 WEST ACU 21:33
PROVIDERS: Student in an Organized Health Care Education/Training Program; ADMITTING PHYSICIAN Internal Medicine; ATTENDING PHYSICIAN Hospitalist; EMERGENCY PHYSICIAN Emergency Medicine; FAMILY PHYSICIAN Family Medicine
DX: I13.0 Hypertensive heart and chronic kidney disease with heart failure and stage 1 through stage 4 chronic kidney disease, or unspecified chronic kidney disease (principal); I50.33 Acute on chronic diastolic (congestive) heart failure; N18.30 Chronic kidney disease, stage 3 unspecified; Z95.5 Presence of coronary angioplasty implant and graft; Z95.1 Presence of aortocoronary bypass graft; I27.20 Pulmonary hypertension, unspecified; J44.89 Other specified chronic obstructive pulmonary disease; I48.0 Paroxysmal atrial fibrillation; Z79.01 Long term (current) use of anticoagulants; N40.0 Benign prostatic hyperplasia without lower urinary tract symptoms; F41.1 Generalized anxiety disorder; K21.9 Gastro-esophageal reflux disease without esophagitis; E78.00 Pure hypercholesterolemia, unspecified; K22.70 Barrett's esophagus without dysplasia; I25.10 Atherosclerotic heart disease of native coronary artery without angina pectoris; Z95.2 Presence of prosthetic heart valve; Z79.899 Other long term (current) drug therapy; Z87.891 Personal history of nicotine dependence; N52.9 Male erectile dysfunction, unspecified; R09.02 Hypoxemia
CPT/HCPCS: 71046; 80048; 80053; 80061; 83735; 83880; 84443; 84484; 85025; 85027; 93005; 93288; 93306; 94640; 94761; 96374; 97162; 97166; 99285

== ENCOUNTER → 2025-01-01 07:11 | Outpatient (REF) | payer BC, SELFPAY ==
[2025-01-01 08:42] LABS: % Basophils 1.5 % (0-2); % Eosinophils 4.5 % (0-6); % Immature Granulocytes 0.3 % (0-0.5); % Lymphocytes 20.3 % (20.5-51.1); % Monocytes 11.3 % (1.7-9.3); % Neutrophils 62.1 % (42.2-75.2); Absolute Basophils 0.1 10^3/uL (0-0.2); Absolute Eosinophils 0.2 10^3/uL (0-0.7); Absolute Lymphocytes 0.7 10^3/uL (1.2-3.4); Absolute Monocytes 0.4 10^3/uL (0.1-0.6); Absolute Neutrophils 2.1 10^3/uL (1.4-6.5); Hematocrit 33.9 % (39.0-52.0); Hemoglobin 11.2 g/dL (13.0-18.0); Mean Corpuscular Hgb 31.5 pg (27.0-31.0); Mean Corpuscular Volume 95.2 fL (80.0-94.0); Mean Platelet Volume 11.4 fL (7.4-10.4); Nucleated Red Blood Cells % 0 % (-); Platelet Count 130 10^3/uL (130-400); Red Blood Cell Count 3.56 10^6/uL (4.70-6.10); White Blood Cell Count 3.4 10^3/uL (4.8-10.8)
[2025-01-01 09:07] LABS: ALT (SGPT) 15 U/L (0-50); AST (SGOT) 20 U/L (17-59); Albumin 3.8 g/dl (3.5-5.0); Alkaline Phosphatase 54 U/L (38-126); Blood Urea Nitrogen 31 mg/dl (9-20); Calcium 9.4 mg/dl (8.4-10.2); Carbon Dioxide 26 mmol/L (22-30); Chloride 111 mmol/L (98-107); Glucose 90 mg/dl (70-99); HDL Cholesterol 61 mg/dl; Iron 73 ug/dl (49-181); LDL Cholesterol, Calculated 57 mg/dl; Potassium 4.2 mmol/L (3.5-5.1); Sodium 142 mmol/L (135-145); Total Bilirubin 0.9 mg/dl (0.2-1.3); Total Cholesterol 128 mg/dl (50-199); Total Protein 6.4 g/dl (6.3-8.2); Triglyceride 51 mg/dl (10-149); Very Low Density Lipoprotein 10 mg/dl (0-30); eGFR > 60.00
[2025-01-01 09:17] LABS: Percent Saturation 25 % (20-50); Total Iron Binding Capacity 287 ug/dl (261-462)
[2025-01-01 09:43] LABS: Ferritin 84.7 ng/ml (17.9-464.0)
[2025-01-02 22:23] LABS: Erythropoietin (EPO) 10 mU/mL (4-27)
== END ==
LOC: REG 07:11
PROVIDERS: ATTENDING PHYSICIAN Internal Medicine; FAMILY PHYSICIAN Family Medicine
DX: Z01.89 Encounter for other specified special examinations (principal); Z79.899 Other long term (current) drug therapy; D50.8 Other iron deficiency anemias; R79.9 Abnormal finding of blood chemistry, unspecified; I25.10 Atherosclerotic heart disease of native coronary artery without angina pectoris
CPT/HCPCS: 36415; 80053; 80061; 82668; 82728; 83540; 83550; 85025

== ENCOUNTER → 2025-02-13 06:41 | Outpatient (REF) | payer MEDICARE, BC, SELFPAY ==
[2025-02-13 07:40] LABS: Glucose 91 mg/dl (70-99); HDL Cholesterol 63 mg/dl; LDL Cholesterol, Calculated 53 mg/dl; Very Low Density Lipoprotein 12 mg/dl (0-30)
[2025-02-13 08:04] LABS: Free T3 3.83 pg/ml (2.77-5.27)
[2025-02-13 08:18] LABS: TSH 1.62 uIU/ml (0.47-4.68)
[2025-02-13 10:49] LABS: Glycohemoglobin (HgbA1c) 5.2 % (4.0-5.6)
== END ==
LOC: REG 06:41
PROVIDERS: ATTENDING PHYSICIAN Internal Medicine Endocrinology, Diabetes & Metabolism; FAMILY PHYSICIAN Family Medicine
DX: E03.9 Hypothyroidism, unspecified (principal); R73.03 Prediabetes; E78.5 Hyperlipidemia, unspecified
CPT/HCPCS: 36415; 80061; 82947; 83036; 84439; 84443; 84481; 86376

== ENCOUNTER → 2025-02-19 12:53 | Outpatient (REF) | payer MEDICARE, BC, SELFPAY ==
[2025-02-19 16:14] LABS: PSA, Total - Screen 0.69 ng/ml (0.0-4.0)
== END ==
LOC: REG 12:53
PROVIDERS: ATTENDING PHYSICIAN Specialist; FAMILY PHYSICIAN Family Medicine
DX: N40.1 Benign prostatic hyperplasia with lower urinary tract symptoms (principal); Z12.5 Encounter for screening for malignant neoplasm of prostate
CPT/HCPCS: 36415; G0103

== ENCOUNTER → 2025-02-27 10:40 | Outpatient (REF) | payer MEDICARE, BC, SELFPAY | LOC: RAD 10:40 | PROVIDERS: ATTENDING PHYSICIAN Internal Medicine Endocrinology, Diabetes & Metabolism; FAMILY PHYSICIAN Family Medicine | DX: E04.2 Nontoxic multinodular goiter (principal) | CPT/HCPCS: 76536 ==

== ENCOUNTER → 2025-04-04 13:44 | Outpatient (REF) | payer MEDICARE, BC, SELFPAY | LOC: RAD 13:44 | PROVIDERS: ATTENDING PHYSICIAN Specialist; FAMILY PHYSICIAN Family Medicine | DX: N50.819 Testicular pain, unspecified (principal) | CPT/HCPCS: 76870; 93976 ==

== ENCOUNTER → 2025-05-27 06:25 | Outpatient (REF) | payer MEDICARE, BC, SELFPAY ==
[2025-05-27 07:40] LABS: Hematocrit 32.8 % (39.0-52.0); Hemoglobin 11.0 g/dL (13.0-18.0); Mean Corp Hgb Conc. 33.5 g/dL (33.0-37.0); Mean Corpuscular Volume 95.3 fL (80.0-94.0); Nucleated Red Blood Cells % 0 % (-); Platelet Count 142 10^3/uL (130-400); Red Cell Dist. Width 14.6 % (11.5-14.5)
[2025-05-27 08:13] LABS: Blood Urea Nitrogen 39 mg/dl (9-20); Calcium 9.1 mg/dl (8.4-10.2); Carbon Dioxide 29 mmol/L (22-30); Chloride 105 mmol/L (98-107); Glucose 91 mg/dl (70-99); Iron 71 ug/dl (49-181); Potassium 4.3 mmol/L (3.5-5.1); Sodium 137 mmol/L (135-145); eGFR > 60.00
[2025-05-27 08:22] LABS: Total Iron Binding Capacity 289 ug/dl (261-462)
[2025-05-27 11:47] LABS: Ferritin 66.2 ng/ml (17.9-464.0)
== END ==
LOC: REG 06:25
PROVIDERS: ATTENDING PHYSICIAN Physician Assistant Medical; FAMILY PHYSICIAN Family Medicine; OTHER PHYSICIAN Specialist
DX: D50.9 Iron deficiency anemia, unspecified (principal); Z95.9 Presence of cardiac and vascular implant and graft, unspecified; I48.0 Paroxysmal atrial fibrillation; I47.20 Ventricular tachycardia, unspecified; I49.3 Ventricular premature depolarization; Z95.0 Presence of cardiac pacemaker; R00.2 Palpitations; R06.02 Shortness of breath
CPT/HCPCS: 36415; 80048; 82728; 83540; 83550; 85025